=== PATIENT | female | born 1950 | race Caucasian/White ===

== ENCOUNTER → 2016-09-12 | Outpatient (CLI) | payer OTHER ==
[~2016-09-12] MED LIST: ACET-1256 PO; ALL300 PO; ASPI-232 PO; BROM0.07 OPL; CHOL1000 PO; CLC150 PO; DIPH-384 PO; DTRSR/2 PO; FRS/40 PO; MULT-506 PO; NEOM1OIN15 OPB; NICO1DIS9 EXT; NICO21DI35 TD; NTRSLP4 SL; PLV75 PO; POTA1CAP2 PO; POTA1TAB97 PO; PRED1SUS3 OPL; PRLSR20 PO; PSEU30TA20 PO; QVRINH80 INH; SILV1CRE73 TOP; SPR25 PO; VERA1TAB60 PO; VNTHFA/IN INH; ZTA10 PO; [UNRECOGNIZED DRUG - CODE] PO
[2016-09-12 12:42] LABS: BLOOD UREA NITROGEN 11 mg/dl (7-18); CARBON DIOXIDE 35 mmol/L (21-32); CHLORIDE 100 mmol/L (98-107); CREATININE 0.82 mg/dl (0.60-1.20); GLUCOSE 103 mg/dl (70-99); POTASSIUM 2.9 mmol/L (3.5-5.1); SODIUM 143 mmol/L (136-145)
[2016-09-12 12:47] LABS: CHOLESTEROL 228 mg/dl (0-200); CHOLESTEROL/HDL RATIO 4.2; ESTIMATED AVERAGE GLUCOSE 111 mg/dl; HA1C FLAG Normal (Normal); HDL CHOLESTEROL 54 mg/dl; LDL CHOLESTEROL CALCULATED 102 mg/dl; TRIGLYCERIDES 359 mg/dl (0-150); VERY LOW DENSITY LIPOPROT CALC 72 mg/dl
== END | disposition home or self-care (01) ==
LOC: C.LABPVFM 10:09
PROVIDERS: ATTEND Nurse Practitioner
DX: I10 Essential (primary) hypertension (principal); E78.1 Pure hyperglyceridemia; E11.9 Type 2 diabetes mellitus without complications

== ENCOUNTER → 2017-03-06 | Outpatient (CLI) | payer OTHER ==
[2017-03-06 12:30] LABS: ALT/SGPT 22 U/L (12-78); AST/SGOT 13 U/L (15-37); BLOOD UREA NITROGEN 12 mg/dl (7-18); BUN/CREATININE RATIO 16.9 (10-20); CALCIUM 9.8 mg/dl (8.5-10.1); CARBON DIOXIDE 33 mmol/L (21-32); CHLORIDE 104 mmol/L (98-107); CREATININE 0.74 mg/dl (0.60-1.20); GLUCOSE 97 mg/dl (70-99); POTASSIUM 2.9 mmol/L (3.5-5.1); SODIUM 141 mmol/L (136-145)
[2017-03-06 12:32] LABS: ALB/GLOB RATIO 1.1 (0.9-2); ALKALINE PHOSPHATASE 86 U/L (45-117)
[2017-03-06 13:02] LABS: ESTIMATED AVERAGE GLUCOSE 108 mg/dl; HA1C FLAG Normal (Normal)
== END | disposition home or self-care (01) ==
LOC: C.LABPVFM 09:16
PROVIDERS: ATTEND Nurse Practitioner
DX: I10 Essential (primary) hypertension (principal); E11.9 Type 2 diabetes mellitus without complications; E78.5 Hyperlipidemia, unspecified; N28.9 Disorder of kidney and ureter, unspecified; E78.1 Pure hyperglyceridemia; E87.6 Hypokalemia

== ENCOUNTER 2017-05-01 16:18 | Inpatient (IN) | payer OTHER ==
[~2017-05-01] VITALS: Ht 162.6 cm; Wt 108.7 kg
[~2017-05-01 16:18] MED LIST changes: -CLC150 PO; -DIPH-384 PO; -DTRSR/2 PO; -NICO21DI35 TD; -NTRSLP4 SL; -PLV75 PO; -POTA1CAP2 PO; -SPR25 PO; -ZTA10 PO
--- NOTE | 2017-05-01 16:47 | EMERGENCY ROOM VISIT NOTE ---
History Report prepared by Kelsi: Rj Donnelly Under the Supervision of: Dr. Deep Vale D.O. First contact with patient: 16:29 Chief Complaint: STROKE SYMPTOMS Stated Complaint: NUMBNESS,SLURRED SPEECH Nursing Triage Summary: Pt verbalizes on Thursday she had laser surgery on her left eye. Right arm/right leg went numb on thursday after procedure, thought it was a pinched nerve from chronic neck pain, did not see doctor at that time. Since then symptoms have worsened, speech is now slurred and right sided numbness remains and now feels weak on right side. History of Present Illness The patient is a 66 year old female with a history of COPD who presents to the Emergency Room with complaints of persistent stroke symptoms that started 3 days ago. She says that she had laser surgery on her left eye 3 days ago, and after the procedure, her right arm and right leg went numb. The patient states that she thought it was a pinched nerve, but since then, she had weakness in her right arm and right leg. She says that nothing is numb currently, but the weakness has persisted. She adds that she has tongue swelling. She notes that she was seen at Dr. Soto's office prior to arrival, and was sent here due to her symptoms. The patient adds that she was completely fine 3 mornings ago before the procedure. She notes that she had been taking Spirolactone for a couple years, but was taken off of it 2 and a half years ago, but was put back on the Spirolactone a week and a half ago by Dr. Cason. The patient denies any headaches, nausea, vomiting, or worsened shortness of breath. She notes no history of strokes. She smokes a half a pack of cigarettes per day. Source of History: patient Onset: 3 days ago Position: other (global - stroke symptoms) Timing: other (persistent) Associated Symptoms: + weakness (right-sided), + numbness (right-sided but no numbness anymore), No headache, No SOB (any worsened), No nausea, No vomiting Note: No other associated symptoms noted. Review of Systems See HPI for pertinent positives & negatives. A total of 10 systems reviewed and were otherwise negative. Past Medical & Surgical Medical Problems: (1) COPD (chronic obstructive pulmonary disease) (2) HTN (hypertension) (3) Neck pain (4) Stroke Family History Cancer Diabetes mellitus Social History Smoking Status: Current Every Day Smoker Drug Use: none Marital Status: Occupation Status: employed Current/Historical Medications Scheduled Acetaminophen (Tylenol), 2 TAB PO QID Albuterol Hfa (Ventolin Hfa), 2 PUFFS INH DAILY Allopurinol (Allopurinol), 300 MG PO QAM Aspirin (Aspir-81), 81 MG PO HS Diphenhydramine Hcl (Allergy), 1 CAP PO BID Furosemide (Lasix), 40 MG PO BID Multivitamin (Multivitamin), 1 TAB PO QAM Nicotine (Nicoderm Cq 21MG Patch), 1 PATCH TD DAILY Potassium Chloride (Potassium Chloride Er), 2 TAB PO BID Pseudoephedrine (Sudafed), 30 MG PO QID Spironolactone (Spironolactone), 1 TAB PO DAILY Tolterodine Tartrate (Detrol LA), Unknown Dose PO DAILY Verapamil Hcl (Calan Sr Ext Rel), 240 MG PO BID Scheduled PRN Silver Sulfadiazine (Silvadene), 1 APPLN TOP DAILY PRN for PRN Allergies Coded Allergies: Grass (Verified Allergy, Intermediate, nasal conjestion,watery eyes, ) Ibuprofen (Verified Allergy, Intermediate, hives, post nasal drip, TAKES ASA AT HOME, 05/01/17) Indomethacin (Verified Allergy, Intermediate, hives, TAKES ASA AT HOME, ) NSAIDs (Verified Allergy, Intermediate, hives, TAKES ASA AT HOME, 05/01/17) Naproxen (Verified Allergy, Intermediate, hives, 05/01/17) Ragweed (Verified Allergy, Intermediate, nasal conjestion, watery eyes, ) Ampicillin (Unverified Allergy, Mild, N/V AND HIVES, 05/01/17) Salicylates (Unverified Allergy, Mild, DIARRHEA, RASH, 05/01/17) LOW-DOSE ASPIRIN OKAY Statins (Verified Allergy, Unknown, MUSCLE ACHES, 05/01/17) Uncoded Allergies: acryllic (Allergy, Intermediate, nasal conjestion, wheezing, 06/07/14) Physical Exam Vital Signs Date Time Temp Pulse Resp B/P (MAP) Pulse Ox O2 Delivery O2 Flow Rate FiO2 05/01/17 19:27 71 25 152/78 94 Nasal Cannula 2.0 05/01/17 19:21 75 192/113 05/01/17 19:04 79 23 200/112 90 Room Air 05/01/17 17:02 Room Air 05/01/17 17:01 Room Air 05/01/17 16:45 93 05/01/17 16:20 36.8 96 22 199/89 93 Room Air Physical Exam GENERAL: Patient is awake, alert, non-anxious appearing and comfortable. EYES: Left pupil was dilated and nonreactive to light. Right pupil was mid- sized and reactive to light. Extraocular movements were intact. EARS, NOSE, MOUTH AND THROAT: The nose is without any evidence of any deformity. Mucous membranes are moist tongue is midline NECK: The neck is nontender and supple. RESPIRATORY: Normal respiratory effort is noted there is no evidence of wheezing rhonchi or rales CARDIOVASCULAR: Regular rate and rhythm noted there no murmurs rubs or gallops normal S1 normal S2 GASTROINTESTINAL: The abdomen is soft. Bowel sounds are present in all quadrants. Abdomen is nontender MUSCULOSKELETAL/EXTREMITIES: There is no evidence of gross deformity full range of motion is noted in the hips and shoulders SKIN: Pedal edema bilaterally. NEUROLOGIC: Patient is awake alert and oriented x3. Speech was slurred but understandable. Toll Line Repairer strength was symmetric. Medical Decision & Procedures ER Provider Diagnostic Interpretation: Radiology results as stated below per my review and radiologist interpretation: HEAD WITHOUT CONTRAST (CT) CLINICAL HISTORY: 66 years-old Female presenting with EVALUATE ALTERED MENTAL STATUS/WEAKNESS, slurred speech. TECHNIQUE: Multidetector CT imaging of the head was performed without the use of intravenous contrast. IV contrast: None. A dose lowering technique was used consistent with the principles of ALARA (as low as reasonably achievable). COMPARISON: None. CT DOSE (mGy.cm): The estimated cumulative dose is 1535.66 mGy.cm. FINDINGS: Tablet Machine Operator topogram: Unremarkable. Posterior fossa cyst, likely arachnoid cyst. Ventricles and sulci normal in size. Old lacunar infarct noted in the right basal ganglia. No mass effect or midline shift. No hemorrhage or acute territorial infarct. No extra-axial fluid collection. Paranasal sinuses and mastoid air cells clear. Calvarium intact. IMPRESSION: 1. No acute intracranial pathology. 2. Old lacunar infarct in the right basal ganglia. Electronically signed by: Franklin Medina M.D. 05/01/2017 5:27 PM Dictated Date/Time: 05/01/2017 5:24 PM CHEST ONE VIEW PORTABLE CLINICAL HISTORY: EVALUATE ALTERED MENTAL STATUS/WEAKNESS dyspnea COMPARISON STUDY: No previous studies for comparison. FINDINGS: Mild cardiomegaly. Post 5 Infiltrate right base. Pulmonary vascular congestion. Diaphragms are smooth. IMPRESSION: Pulmonary vascular congestion. Mild superimposed infiltrate right base. The above report was generated using voice recognition software. It may contain grammatical, syntax or spelling errors. Electronically signed by: Maxim Henley M.D. 05/01/2017 5:18 PM Dictated Date/Time: 05/01/2017 5:18 PM Laboratory Results 05/01/17 16:50 Red Blood Count 4.76, Mean Corpuscular Volume 91.6, Mean Corpuscular Hemoglobin 30.0, Mean Corpuscular Hemoglobin Concent 32.8, Mean Platelet Volume 10.8, Neutrophils (%) (Auto) 64.2, Lymphocytes (%) (Auto) 25.2, Monocytes (%) (Auto) 8.4, Eosinophils (%) (Auto) 1.4, Basophils (%) (Auto) 0.5, Neutrophils # (Auto) 5.07, Lymphocytes # (Auto) 1.99, Monocytes # (Auto) 0.66, Eosinophils # (Auto) 0.11, Basophils # (Auto) 0.04 05/01/17 16:50 Test 05/01/17 16:50 05/01/17 18:25 White Blood Count 7.89 K/uL (4.8-10.8) Red Blood Count 4.76 M/uL (4.2-5.4) Hemoglobin 14.3 g/dL (12.0-16.0) Hematocrit 43.6 % (37-47) Mean Corpuscular Volume 91.6 fL (80-100) Mean Corpuscular Hemoglobin 30.0 pg (25-34) Mean Corpuscular Hemoglobin Concent 32.8 g/dl (32-36) Platelet Count 221 K/uL (130-400) Mean Platelet Volume 10.8 fL (7.4-10.4) Neutrophils (%) (Auto) 64.2 % Lymphocytes (%) (Auto) 25.2 % Monocytes (%) (Auto) 8.4 % Eosinophils (%) (Auto) 1.4 % Basophils (%) (Auto) 0.5 % Neutrophils # (Auto) 5.07 K/uL (1.4-6.5) Lymphocytes # (Auto) 1.99 K/uL (1.2-3.4) Monocytes # (Auto) 0.66 K/uL (0.11-0.59) Eosinophils # (Auto) 0.11 K/uL (0-0.5) Basophils # (Auto) 0.04 K/uL (0-0.2) RDW Standard Deviation 47.5 fL (36.4-46.3) RDW Coefficient of Variation 14.2 % (11.5-14.5) Immature Granulocyte % (Auto) 0.3 % Immature Granulocyte # (Auto) 0.02 K/uL (0.00-0.02) Prothrombin Time 10.1 SECONDS (9.0-12.0) Prothromb Time International Ratio 0.9 (0.9-1.1) Activated Partial Thromboplast Time 31.4 SECONDS (21.0-31.0) Partial Thromboplastin Ratio 1.2 Anion Gap 6.0 mmol/L (3-11) Est Creatinine Clear Calc Drug Dose 88.2 ml/min Estimated GFR () 93.4 Estimated GFR (Non- 80.6 BUN/Creatinine Ratio 16.7 (10-20) Calcium Level 9.0 mg/dl (8.5-10.1) Magnesium Level 2.2 mg/dl (1.8-2.4) Total Bilirubin 0.5 mg/dl (0.2-1) Direct Bilirubin 0.1 mg/dl (0-0.2) Aspartate Amino Transf (AST/SGOT) 14 U/L (15-37) Alanine Aminotransferase (ALT/SGPT) 17 U/L (12-78) Alkaline Phosphatase 84 U/L (45-117) Troponin I < 0.015 ng/ml (0-0.045) Total Protein 7.1 gm/dl (6.4-8.2) Albumin 3.7 gm/dl (3.4-5.0) Thyroid Stimulating Hormone (TSH) 3.500 uIu/ml (0.300-4.500) Urine Color YELLOW Urine Appearance CLEAR (CLEAR) Urine pH 7.5 (4.5-7.5) Urine Specific [place] 1.013 (1.000-1.030) Urine Protein NEG (NEG) Urine Glucose (UA) NEG (NEG) Urine Ketones NEG (NEG) Urine Occult Blood NEG (NEG) Urine Nitrite NEG (NEG) Urine Bilirubin NEG (NEG) Urine Urobilinogen NEG (NEG) Urine Leukocyte Esterase NEG (NEG) Laboratory results per my review. Medications Administered Medications (Trade) Dose Ordered Sig/Klaudia Route Start Time Stop Time Status Last Admin Dose Admin Levofloxacin (Levaquin / D5W) 750 mg NOW STAT IV 05/01/17 19:08 05/01/17 19:09 DC 05/01/17 19:15 750 MG Metoprolol Tartrate (Lopressor Iv) 15 mg NOW STAT IV 05/01/17 19:09 05/01/17 19:10 DC 05/01/17 19:21 15 MG ECG Indication: weakness Rate (beats per minute): 88 Rhythm: normal sinus Findings: no ectopy, other (no acute ST segment abnormalities) Comparison ECG Date: no prior available ED Course 1631: The patient was evaluated in room A10. A complete history and physical examination were performed. 1905: I reevaluated the patient and she is resting comfortably. The patient verbally expressed understanding and agreement with the treatment plan. The patient will be evaluated for further treatment. 1907: Ordered Levaquin / D5W 750 mg IV. 1908: Ordered Lopressor IV 15 mg IV. 0: I discussed the patient with Dr. Cavanaugh - [facility] service delivery supervisor. He will evaluate the patient for further treatment. Medical Decision Differential diagnosis: Etiologies such as metabolic, infection, hypo/hyperglycemia, electrolyte abnormalities, cardiac sources, intracerebral event, toxicologic, neurologic, as well as others were entertained. Nursing notes reviewed. The patient is a 66-year-old female who presented to the emergency department for ongoing right-sided weakness. The patient noticed symptoms a few days ago. She also has a cough. Her chest x-ray appears to be consistent with pneumonia. The patient does not have an acute CVA on CT the head however she does have a previous lacunar infarct. It does not appear to be in a distribution that would explain today's symptoms however given the presence of a previous CVA I do feel the patient could be at risk and may require further testing. I discussed the patient's laboratory and radiographic studies with her. She was treated with medication for blood pressure and also given an IV antibiotic in the emergency department. I discussed his case with the on-call [facility] hospitalist group. They've agreed to evaluate the patient in the emergency department for further management and disposition. Head Trauma GCS Score: 15 Medication Reconcilliation Current Medication List: was personally reviewed by me Blood Pressure Screening Patient's blood pressure: Elevated blood pressure Referred to hospitalist. Consults Time Called: 1919 [facility]ing Phys[facility] Returned Call: 1929 (in person) I discussed the patient with Dr. Cavanaugh - [facility] service delivery supervisor. He will evaluate the patient for further treatment. Impression Primary Impression: Right sided weakness Additional Impressions: PNA (pneumonia) HTN (hypertension) Scribe Attestation The scribe's documentation has been prepared under my direction and personally reviewed by me in its entirety. I confirm that the note above accurately reflects all work, treatment, procedures, and medical decision making performed by me. Departure Information Dispostion Being Evaluated By Hospitalist Referrals Franklin Alarcon M.D. (PCP) Patient Instructions My [facility] Health Problem Qualifiers Additional Impressions: PNA (pneumonia) Pneumonia type: due to unspecified organism Laterality: unspecified laterality Lung location: unspecified part of lung Qualified Codes: J18.9 - Pneumonia, unspecified organism HTN (hypertension) Hypertension type: unspecified Qualified Codes: I10 - Essential (primary) hypertension
[2017-05-01 17:12] LABS: BASO % 0.5 %; BASO ABS # 0.04 K/uL (0-0.2); COMPLETE YES; EOS % 1.4 %; HEMATOCRIT 43.6 % (37-47); IG% 0.3 %; LYMPH % 25.2 %; LYMPH ABS # 1.99 K/uL (1.2-3.4); MEAN CELL VOLUME 91.6 fL (80-100); MEAN CORPUSCULAR HGB CONC 32.8 g/dl (32-36); MEAN PLATELET VOLUME 10.8 fL (7.4-10.4); MONO % 8.4 %; NEUT % 64.2 %; PLATELET COUNT 221 K/uL (130-400); RED BLOOD COUNT 4.76 M/uL (4.2-5.4); WHITE BLOOD COUNT 7.89 K/uL (4.8-10.8)
[2017-05-01 17:17] LABS: INR 0.9 (0.9-1.1); PARTIAL THROMBOPLASTIN RATIO 1.2; PROTHROMBIN TIME (PATIENT) 10.1 SECONDS (9.0-12.0)
--- NOTE | 2017-05-01 17:20 | DIAGNOSTIC IMAGING REPORT ---
CHEST ONE VIEW PORTABLE CLINICAL HISTORY: EVALUATE ALTERED MENTAL STATUS/WEAKNESS dyspnea COMPARISON STUDY: No previous studies for comparison. FINDINGS: Mild cardiomegaly. Post 5 Infiltrate right base. Pulmonary vascular congestion. Diaphragms are smooth. IMPRESSION: Pulmonary vascular congestion. Mild superimposed infiltrate right base. The above report was generated using voice recognition software. It may contain grammatical, syntax or spelling errors. Electronically signed by: Maxim Henley M.D. 05/01/2017 5:18 PM Dictated Date/Time: 05/01/2017 5:18 PM
--- NOTE | 2017-05-01 17:28 | DIAGNOSTIC IMAGING REPORT ---
HEAD WITHOUT CONTRAST (CT) CLINICAL HISTORY: 66 years-old Female presenting with EVALUATE ALTERED MENTAL STATUS/WEAKNESS, slurred speech. TECHNIQUE: Multidetector CT imaging of the head was performed without the use of intravenous contrast. IV contrast: None. A dose lowering technique was used consistent with the principles of ALARA (as low as reasonably achievable). COMPARISON: None. CT DOSE (mGy.cm): The estimated cumulative dose is 1535.66 mGy.cm. FINDINGS: Eyeglass Lens Generator topogram: Unremarkable. Posterior fossa cyst, likely arachnoid cyst. Ventricles and sulci normal in size. Old lacunar infarct noted in the right basal ganglia. No mass effect or midline shift. No hemorrhage or acute territorial infarct. No extra-axial fluid collection. Paranasal sinuses and mastoid air cells clear. Calvarium intact. IMPRESSION: 1. No acute intracranial pathology. 2. Old lacunar infarct in the right basal ganglia. Electronically signed by: Franklin Medina M.D. 05/01/2017 5:27 PM Dictated Date/Time: 05/01/2017 5:24 PM
[2017-05-01] MEDS ORDERED: POTA1CAP2 PO (17:31)
[2017-05-01] MEDS ORDERED: SPR25 PO (17:31)
[2017-05-01 17:32] LABS: ALT/SGPT 17 U/L (12-78); AST/SGOT 14 U/L (15-37); BLOOD UREA NITROGEN 13 mg/dl (7-18); BUN/CREATININE RATIO 16.7 (10-20); CARBON DIOXIDE 29 mmol/L (21-32); CHLORIDE 106 mmol/L (98-107); CREATININE 0.76 mg/dl (0.60-1.20); GLUCOSE 94 mg/dl (70-99); MAGNESIUM 2.2 mg/dl (1.8-2.4); POTASSIUM 3.2 mmol/L (3.5-5.1); SODIUM 141 mmol/L (136-145)
[2017-05-01] MEDS ORDERED: DIPH-384 PO (17:44)
[2017-05-01] MEDS ORDERED: NICO21DI35 TD (17:44)
[2017-05-01] MEDS ORDERED: DTRSR/2 PO (17:44)
[2017-05-01 17:53] LABS: ALKALINE PHOSPHATASE 84 U/L (45-117)
[2017-05-01 18:32] LABS: URINE APPEARANCE CLEAR (CLEAR); URINE BILIRUBIN NEG (NEG); URINE COLOR YELLOW; URINE NITRITE NEG (NEG); URINE PH 7.5 (4.5-7.5); URINE SPECIFIC GRAVITY 1.013 (1.000-1.030); UROBILINOGEN NEG (NEG)
[2017-05-01 18:37] LABS: MANUAL MICROSCOPIC REQUIRED? NO; REVIEW REQ? NO
[2017-05-01] MEDS ORDERED: LEVAQUIN 750MG / 150ML D5W IV STA (19:08)
[2017-05-01] MEDS: METOPROLOL TARTRATE 1 MG/ML VIAL IV STA ×2 (19:16→19:21)
[2017-05-01] MEDS ORDERED: PHARMACIST DISCHARGE MED REC CONSULT PRN (20:15)
[2017-05-01] MEDS ORDERED: ZOLPIDEM TARTRATE 5 MG TAB PO PRN (20:30)
[2017-05-01] MEDS ORDERED: ALUMINUM/MAGNESIUM/SIMETH (MAALOX MAX) 30 ML UDC PO PRN (20:30)
[2017-05-01] MEDS ORDERED: NITROGLYCERIN 0.4 MG SL PER TAB CHARGE SL PRN (20:30)
[2017-05-01] MEDS ORDERED: ACETAMINOPHEN 325 MG TAB PO PRN (20:30)
[2017-05-01] MEDS ORDERED: CLOPIDOGREL BISULFATE 75 MG TAB PO ONE (20:30)
[2017-05-01] MEDS ORDERED: POLYETHYLENE (MIRALAX) 17 GM PACK PO PRN (20:30)
[2017-05-01] MEDS ORDERED: MAGNESIUM HYDROXIDE SUSP 30 ML UDC PO PRN (20:30)
[2017-05-01] MEDS ORDERED: ONDANSETRON INJ 2 MG/ML 2 ML VIAL IV PRN (20:30)
[2017-05-01] MEDS ORDERED: ACETAMINOPHEN 500 MG TAB PO SCH (20:45)
--- NOTE | 2017-05-01 20:54 | History and Physical ---
History & Physical Date & Time of Service: May 01, 2017 at 19:21 Chief Complaint: Numbness,Slurred Speech Primary Care Physician: Franklin Alarcon M.D. History of Present Illness Source: patient, family, clinic records, hospital records 66F with a PMHx of COPD (half pk per day x 50 years on Albuterol), HTN, cervical radiculopathy and poor ambulation at baseline p/w right arm tingling and weakness since Thursday. She had laser eye surgery with Dr. Kim on Thursday and thought that her right arm weakness and tingling was part of her chronic cervical radiculopathy. Pt states that her right leg is also weaker than her left leg but that weakness predates the eye surgery with Dr. Kim. She was sent to the hospital today from Dr. Soto's office who wants to rule out a stroke. According to pt and her she hasn't had any changes in her gait. Her also hasn't noticed any changes with his which include changes in her gait or facial asymmetry. On ROS pt states that she has been having slurred speech but she thinks that is from her dry mouth. She denies any symptoms of dysphagia. On the ED, chest X-ray revealed a right lower lobe infiltrate and pt was started on Levofloxacin. Pt denies any coughing or fevers however while in the exam room she did coughed one time. ROS: Pt does not feel sick, she in fact feels at her baseline except for her right arm weakness, no vomiting, no choking, no dysphagia, no cough, no fevers, no chest pain, no visual changes, denies changes in her gait. SHx: lives with , retired, uses a motorized scooter to ambulate at baseline. Past Medical/Surgical History Medical Problems: (1) COPD (chronic obstructive pulmonary disease) Status: Chronic (2) HTN (hypertension) Status: Chronic (3) Neck pain Status: Chronic Family History Cancer Diabetes mellitus Social History Smoking Status: Current Every Day Smoker Smokeless Tobacco Use: No Alcohol Use: none Drug Use: none Marital Status: Housing status: lives with family Occupational Status: employed Immunizations History of Influenza Vaccine: Unknown History of Tetanus Vaccine?: Unknown History of Pneumococcal: Unknown History of Hepatitis B Vaccine: Unknown Multi-Drug Resistant Organisms History of MDRO: No Allergies Coded Allergies: Grass (Verified Allergy, Intermediate, nasal conjestion,watery eyes, ) Ibuprofen (Verified Allergy, Intermediate, hives, post nasal drip, TAKES ASA AT HOME, 05/01/17) Indomethacin (Verified Allergy, Intermediate, hives, TAKES ASA AT HOME, ) NSAIDs (Verified Allergy, Intermediate, hives, TAKES ASA AT HOME, 05/01/17) Naproxen (Verified Allergy, Intermediate, hives, 05/01/17) Ragweed (Verified Allergy, Intermediate, nasal conjestion, watery eyes, ) Ampicillin (Unverified Allergy, Mild, N/V AND HIVES, 05/01/17) Salicylates (Unverified Allergy, Mild, DIARRHEA, RASH, 05/01/17) LOW-DOSE ASPIRIN OKAY Statins (Verified Allergy, Unknown, MUSCLE ACHES, 05/01/17) Uncoded Allergies: acryllic (Allergy, Intermediate, nasal conjestion, wheezing, 06/07/14) Home Medications Scheduled Acetaminophen (Tylenol), 2 TAB PO QID Albuterol Hfa (Ventolin Hfa), 2 PUFFS INH DAILY Allopurinol (Allopurinol), 300 MG PO QAM Aspirin (Aspir-81), 81 MG PO HS Diphenhydramine Hcl (Allergy), 1 CAP PO BID Furosemide (Lasix), 40 MG PO BID Multivitamin (Multivitamin), 1 TAB PO QAM Nicotine (Nicoderm Cq 21MG Patch), 1 PATCH TD DAILY Potassium Chloride (Potassium Chloride Er), 2 TAB PO BID Pseudoephedrine (Sudafed), 30 MG PO QID Spironolactone (Spironolactone), 1 TAB PO DAILY Tolterodine Tartrate (Detrol LA), Unknown Dose PO DAILY Verapamil Hcl (Calan Sr Ext Rel), 240 MG PO BID Scheduled PRN Silver Sulfadiazine (Silvadene), 1 APPLN TOP DAILY PRN for PRN Review of Systems Constitutional: No fever, No chills ENT: No sore throat Respiratory: + cough, No shortness of breath Cardiovascular: No chest pain Abdomen: No nausea, No vomiting, No diarrhea Musculoskeletal: + joint pain, + muscle pain, No swelling, No calf pain Genitourinary - Female: No dysuria Psychiatric: No depression symptoms Endocrine: No fatigue Integumentary: No rash Physical Exam Vital Signs Date Time Temp Pulse Resp B/P (MAP) Pulse Ox O2 Delivery O2 Flow Rate FiO2 05/01/17 19:16 80 200/112 05/01/17 19:04 79 23 200/112 Room Air 05/01/17 17:02 Room Air 05/01/17 17:01 Room Air 05/01/17 16:45 93 05/01/17 16:20 36.8 96 22 199/89 93 Room Air General Appearance: WD/WN, + obese Head: normocephalic, atraumatic Eyes: + pertinent finding (right pupil was constricted compared to the left pupil) Neck: supple, no JVD Respiratory/Chest: chest non-tender, lungs clear, normal breath sounds, no respiratory distress, no accessory muscle use Cardiovascular: regular rate, rhythm, no murmur Abdomen/GI: normal bowel sounds, non tender, soft, + pertinent finding (obese) Back: normal inspection, no CVA tenderness, no muscle spasm Extremities/Musculoskelatal: no calf tenderness, non-tender, + pertinent finding (Pt was unable to raise the right leg past 30 degrees and unable to raise the left leg past 45 degrees. She had significantly decreased hand strength on the right side (handshake, finger squeeze) vs the left. She was also unable to raise her right arm to the same height as her left arm. ) Neurologic/Psych: harness repairer II-XII nml as tested, no motor/sensory deficits, alert, normal mood/affect, oriented x 3, + pertinent finding (no facial droop, facial muscles were symmetric, sensation was intact and symmetrical to light touch over the lower extremities, upper extremities and face bilaterally. Shoulde shrug was intact, frown was symmetrical, smile was symmetrical, tongue protrusion was symmetrical, uvula was symmetrical. Patient did not seem to have slurred speech for me. ) Skin: no rash Diagnostics Laboratory Results Results Past 24 Hours Test 05/01/17 16:50 05/01/17 18:25 Range/Units White Blood Count 7.89 4.8-10.8 K/uL Red Blood Count 4.76 4.2-5.4 M/uL Hemoglobin 14.3 12.0-16.0 g/dL Hematocrit 43.6 37-47 % Mean Corpuscular Volume 91.6 80-100 fL Mean Corpuscular Hemoglobin 30.0 25-34 pg Mean Corpuscular Hemoglobin Concent 32.8 32-36 g/dl Platelet Count 221 130-400 K/uL Mean Platelet Volume 10.8 7.4-10.4 fL Neutrophils (%) (Auto) 64.2 % Lymphocytes (%) (Auto) 25.2 % Monocytes (%) (Auto) 8.4 % Eosinophils (%) (Auto) 1.4 % Basophils (%) (Auto) 0.5 % Neutrophils # (Auto) 5.07 1.4-6.5 K/uL Lymphocytes # (Auto) 1.99 1.2-3.4 K/uL Monocytes # (Auto) 0.66 0.11-0.59 K/uL Eosinophils # (Auto) 0.11 0-0.5 K/uL Basophils # (Auto) 0.04 0-0.2 K/uL RDW Standard Deviation 47.5 36.4-46.3 fL RDW Coefficient of Variation 14.2 11.5-14.5 % Immature Granulocyte % (Auto) 0.3 % Immature Granulocyte # (Auto) 0.02 0.00-0.02 K/uL Prothrombin Time 10.1 9.0-12.0 SECONDS Prothromb Time International Ratio 0.9 0.9-1.1 Activated Partial Thromboplast Time 31.4 21.0-31.0 SECONDS Partial Thromboplastin Ratio 1.2 Sodium Level 141 136-145 mmol/L Potassium Level 3.2 3.5-5.1 mmol/L Chloride Level 106 98-107 mmol/L Carbon Dioxide Level 29 21-32 mmol/L Anion Gap 6.0 3-11 mmol/L Blood Urea Nitrogen 13 7-18 mg/dl Creatinine 0.76 0.60-1.20 mg/dl Est Creatinine Clear Calc Drug Dose 88.2 ml/min Estimated GFR () 93.4 Estimated GFR (Non- 80.6 BUN/Creatinine Ratio 16.7 10-20 Random Glucose 94 70-99 mg/dl Calcium Level 9.0 8.5-10.1 mg/dl Magnesium Level 2.2 1.8-2.4 mg/dl Total Bilirubin 0.5 0.2-1 mg/dl Direct Bilirubin 0.1 0-0.2 mg/dl Aspartate Amino Transf (AST/SGOT) 14 15-37 U/L Alanine Aminotransferase (ALT/SGPT) 17 12-78 U/L Alkaline Phosphatase 84 45-117 U/L Troponin I < 0.015 0-0.045 ng/ml Total Protein 7.1 6.4-8.2 gm/dl Albumin 3.7 3.4-5.0 gm/dl Thyroid Stimulating Hormone (TSH) 3.500 0.300-4.500 uIu/ml Urine Color YELLOW Urine Appearance CLEAR CLEAR Urine pH 7.5 4.5-7.5 Urine Specific [place] 1.013 1.000-1.030 Urine Protein NEG NEG Urine Glucose (UA) NEG NEG Urine Ketones NEG NEG Urine Occult Blood NEG NEG Urine Nitrite NEG NEG Urine Bilirubin NEG NEG Urine Urobilinogen NEG NEG Urine Leukocyte Esterase NEG NEG Diagnostic Radiology CHEST ONE VIEW PORTABLE CLINICAL HISTORY: EVALUATE ALTERED MENTAL STATUS/WEAKNESS dyspnea COMPARISON STUDY: No previous studies for comparison. FINDINGS: Mild cardiomegaly. Post 5 Infiltrate right base. Pulmonary vascular congestion. Diaphragms are smooth. IMPRESSION: Pulmonary vascular congestion. Mild superimposed infiltrate right base. [~ rep ct add3]] HEAD WITHOUT CONTRAST (CT) CLINICAL HISTORY: 66 years-old Female presenting with EVALUATE ALTERED MENTAL STATUS/WEAKNESS, slurred speech. TECHNIQUE: Multidetector CT imaging of the head was performed without the use of intravenous contrast. IV contrast: None. A dose lowering technique was used consistent with the principles of ALARA (as low as reasonably achievable). COMPARISON: None. CT DOSE (mGy.cm): The estimated cumulative dose is 1535.66 mGy.cm. FINDINGS: Emergency Physician topogram: Unremarkable. Posterior fossa cyst, likely arachnoid cyst. Ventricles and sulci normal in size. Old lacunar infarct noted in the right basal ganglia. No mass effect or midline shift. No hemorrhage or acute territorial infarct. No extra-axial fluid collection. Paranasal sinuses and mastoid air cells clear. Calvarium intact. IMPRESSION: 1. No acute intracranial pathology. 2. Old lacunar infarct in the right basal ganglia. Impression Assessment and Plan 66F with a PMHx of COPD (half pk per day x 50 years on Albuterol), HTN, cervical radiculopathy and poor ambulation at baseline p/w right arm tingling and weakness since Thursday. There was an old right sided basal ganglia infarct on CT Scan. On exam there are significant neurological deficits in the RUE vs the left and assymetrical pupils. She was not a TPA candidate due to duration of symptoms. She will be admitted to tele and worked up with a MRA head and neck and MRI brain. She will also get an echocardiogram. Per quality measures neurology was also consulted. Stroke: - Right sided arm weakness since Thursday + assymetrical pupils. - CT : Old R basal ganglia stroke. - MRA Head and Neck (combo) pending- PT refused - MRI brain pending. - PT refused - In leiu of MRA and MRI, we are getting a CTA head and neck. - Echo pending. - Neurology consulted (as per protocol) - Speech therapy consulted. - Anticoagulation - ASA 81MG (pt takes this at home despite the documented NSAID allergy) - Statin - Pt gets hives and rash so we did not order one. CV - EKG showed normal sinus rhythm. Will put pt on tele. Echo pending as above. HTN: Continue home meds Verapamil 240mg XR, Lasix 40mg dialy and Spironolactone 25mg daily. - Continue to monitor, pt was in the 180s systolic in the ED and given 5mg Metoprolol. Pneumonia Right Base - ?Aspiration vs Infectious X-ray showed pulmonary vascular congestion. Mild superimposed infiltrate right base. Pt is reporting a dry mouth, if there's a dysphagia, this may be a contributing factor. Pt failed dysphagia screen in the ED, then got a moisturized swab of the mouth and passed her dysphagia screen on the floor. WBC within normal limits. Abx: changed Levoquin to Ceftriaxone 1g daily + Clindamycin 600mg IV Q6 WBC normal. COPD - Albuterol as per home dosing. - Pt smokes half a pack of cigarettes per day. - Smoking cessation consult. - Nicotine 21mg TD patch. Renal/ - Pt is on Toleterodine at home for urinary incontinence, will continue as inpatient at 2mg daily PO. Creatinine is WNL. Will monitor urine output. Lasix 40mg PO per home meds, 20mg KCL daily PO GI/Diet - Pt denies any dysphagia or inability to take pills, ergo will start her on a heart healthy diet, this may need to be changed pending speech evaluation. Endo - Per patient she is a prediabetic, not on any meds, measures BS at home and gets 90-115 range. HBA1C pending. Heme - Hgb , INR, Platelets WNL. ID - Afebrile, WBC count normal. Treating pneumonia as above. MSK - Uses a motorized scooter to walk around at baseline. PT and OT on board. Social - No concerns. DVT Proph: Hep SQ TID Dispo - Tele, retired, lives with . Full Code Attending Addendum: I have physically seen and examined this patient, have directed the resident's medical activities, and agree with the H&P as noted above with the following exceptions as noted. The patient is awake, alert and oriented 3, well-developed and well-nourished , normocephalic and atraumatic, lying in bed and in no acute distress. HEENT--physiologic anisocoria, mucous membranes and oropharynx very dry. Neck--supple, no JVD or bruits, thyroid normal, trachea midline, no adenopathy. Heart--normal S1 and S2, no extra beats, no murmurs, rubs or gallops. Lungs--clear bilaterally with good air movement, no respiratory distress, no accessory muscle use. Abdomen--normal bowel sounds and soft, nontender and nondistended, no hernias or masses, no organomegaly, obese Extremities--no cyanosis, clubbing or edema. There are good distal pulses b/l. Dermatologic--normal skin turgor, normal color, warm and dry, no abnormal lymph nodes, no rash. Neurologic--cranial nerves II through XII grossly intact, decreased motor RU and RL as described. LLE decreased due to deconditioning Rheumatologic--limited by above. Psychiatric--normal affect. Assessment and Plan: CVA/right sided weakness/previously reported dysphagia secondary to severely dry mouth-- The patient will be admitted to telemetry for serial cardiac enzymes, cardiac rhythm monitoring and a 2-D echocardiogram with Dopplers. Patient unable to tolerate MRI. Order CTA of head and neck. Discontinue aspirin 81 mg by mouth daily, does not tolerate other NSAIDs. Start plavix 75 mg po daily Neuro checks. Consult PT/OT/speech therapy/neurology. Right lower lobe pneumonia-- Start ceftriaxone 1 g IV daily. Start clindamycin 900 mg IV every 8 hours. COPD/tobacco use disorder-- Continue albuterol. Smoking cessation. Nicotine 21 mg patch daily. Level of Care Telemetry Advanced Directives Existing Advance Directive: No Existing Living Will: No Existing Power of Rug Inspector Helper: No Resuscitation Status FULL RESUSCITATION VTE Prophylaxis Risk Level: Moderate Given or contraindicated: SCD's Social Service Consult None Apply Resident Involvement: Resident Care Provided Care Provided: Adult Hospital Medicine
[2017-05-01] MEDS ORDERED: CLOPIDOGREL BISULFATE 75 MG TAB ONE (20:59)
[2017-05-01] MEDS ORDERED: ASPIRIN 81 MG ECTAB PO ONE (20:59)
[2017-05-01 22:30] VITALS: BP 173/88; PULSE 74; TEMP 36.7; O2SAT 94; Ht 162.6 cm; Wt 108.7 kg
[2017-05-01] MEDS: ASPIRIN 81 MG ECTAB PO STA ×2 (22:32→22:39)
[2017-05-01] MEDS: HEPARIN SOD 5000 UNIT/0.5 ML CARP SQ SCH (22:37)
[2017-05-01] MEDS: VERAPAMIL HCL 240 MG TABCR PO SCH (22:39)
[2017-05-01] MEDS: FUROSEMIDE 40 MG TAB PO SCH (22:39)
[2017-05-01] MEDS ORDERED: NURSING VERBAL MED ORDER ONE (22:45)
[2017-05-01] MEDS ORDERED: OPTIRAY 320 IV PRN (23:00)
[2017-05-01] MEDS ORDERED: INFLUENZA ADMINISTRATION CHARGE ONE (23:45)
[2017-05-01] MEDS ORDERED: INFLUENZA VACCINE HIGH DOSE 65+ 0.5 ML SYR IM. ONE (23:45)
[2017-05-01] MEDS: CEFTRIAXONE SOD INJ 1 GM in DEXTROSE 5% ADD-VANTAGE 50ML 50 ML IV SCH (23:53)
[2017-05-01 23:59] VITALS: O2SAT 94
[2017-05-02] VITALS (7 sets, daily range): BP systolic 153–178; BP diastolic 71–89; PULSE 62–81; TEMP 36.4–36.8; O2SAT 91–95
[2017-05-02] MEDS ORDERED: CLINDAMYCIN IV 600 MG in DEXTROSE 5% 50ML 50 ML IV SCH ×2
[2017-05-02] MEDS: POTASSIUM CHLR 10 MEQ / WTR 10 MEQ in PREMIXED WATER 100 ML IV SCH (01:07)
[2017-05-02] MEDS: HEPARIN SOD 5000 UNIT/0.5 ML CARP SQ SCH ×3 (05:42→21:38)
[2017-05-02 06:20] LABS: BASO % 0.4 %; BASO ABS # 0.03 K/uL (0-0.2); COMPLETE YES; EOS % 1.6 %; HEMATOCRIT 44.8 % (37-47); IG% 0.2 %; LYMPH % 25.5 %; LYMPH ABS # 2.09 K/uL (1.2-3.4); MEAN CELL VOLUME 92.9 fL (80-100); MEAN CORPUSCULAR HEMOGLOBIN 30.1 pg (25-34); MEAN CORPUSCULAR HGB CONC 32.4 g/dl (32-36); MEAN PLATELET VOLUME 11.3 fL (7.4-10.4); MONO % 13.2 %; NEUT % 59.1 %; PLATELET COUNT 223 K/uL (130-400); RED BLOOD COUNT 4.82 M/uL (4.2-5.4); WHITE BLOOD COUNT 8.19 K/uL (4.8-10.8)
[2017-05-02 06:29] LABS: PROTHROMBIN TIME (PATIENT) 10.7 SECONDS (9.0-12.0)
[2017-05-02 06:50] LABS: BUN/CREATININE RATIO 15.8 (10-20); CALCIUM 8.8 mg/dl (8.5-10.1); CREATININE 0.62 mg/dl (0.60-1.20); POTASSIUM 3.2 mmol/L (3.5-5.1)
[2017-05-02 06:53] LABS: CHOLESTEROL/HDL RATIO 4.9
--- NOTE | 2017-05-02 07:31 | Family Medicine Progress Note ---
Progress Note Date of Service May 02, 2017. Subjective Pt evaluation today including: conversation w/ patient, physical exam, chart review, lab review, review of studies Found pt lying comfortably, conversing easily with slurred speech, in NAD. Says she has no new pains (has chronic extremity pains), CP, SOB, or acute concerns. Wonders when she's going home. Constitutional: No fever, No chills Respiratory: No cough, No shortness of breath Cardiovascular: No chest pain, No edema Abdomen: No pain, No nausea, No vomiting Neurologic: + weakness, + problem reported (slurred speech) Medications Current Inpatient Medications Medications (Trade) Dose Ordered Sig/Klaudia Route Start Time Stop Time Status Last Admin Dose Admin Miscellaneous Information (Pharmacist Discharge Med Rec Consult) 1 ea UD PRN N/A 05/01/17 20:15 05/31/17 20:14 Heparin Sodium (Porcine) (Heparin Sq 5000 Unit/0.5ml) 5,000 unit Q8 SQ 05/01/17 22:00 05/31/17 21:59 05/02/17 05:42 5,000 UNIT Acetaminophen (Tylenol Tab) 650 mg Q4H PRN PO 05/01/17 20:30 05/31/17 20:29 Al Hydrox/Mg Hydrox/Simethicone (Maalox Max Susp) 15 ml Q4H PRN PO 05/01/17 20:30 05/31/17 20:29 Magnesium Hydroxide (Milk Of Magnesia Susp) 30 ml Q12H PRN PO 05/01/17 20:30 05/31/17 20:29 Zolpidem Tartrate (Ambien Tab) 5 mg HSZ PRN PO 05/01/17 20:30 05/31/17 20:29 Ondansetron HCl (Zofran Inj) 4 mg Q6H PRN IV 05/01/17 20:30 05/31/17 20:29 Nitroglycerin (Nitrostat Tab) 0.4 mg UD PRN SL 05/01/17 20:30 05/31/17 20:29 Polyethylene (Miralax Powder Packet) 17 gm DAILY PRN PO 05/01/17 20:30 05/31/17 20:29 Albuterol (Ventolin Hfa Inhaler) 2 puffs DAILY INH 05/02/17 09:00 06/01/17 08:59 05/02/17 08:29 2 PUFFS Allopurinol (Zyloprim Tab) 300 mg QAM PO 05/02/17 09:00 06/01/17 08:59 05/02/17 08:31 300 MG Furosemide (Lasix Tab) 40 mg BID17 PO 05/01/17 21:00 05/31/17 20:59 05/02/17 08:31 40 MG Nicotine (Nicoderm Cq 21MG Patch) 1 patch DAILY TD 05/02/17 09:00 06/01/17 08:59 05/02/17 08:31 1 PATCH Spironolactone (Aldactone Tab) 25 mg DAILY PO 05/02/17 09:00 06/01/17 08:59 05/02/17 08:29 25 MG Tolterodine Tartrate (Detrol LA Cap) 2 mg DAILY PO 05/02/17 09:00 06/01/17 08:59 05/02/17 08:30 2 MG Verapamil HCl (Calan-Sr Tab) 240 mg BID PO 05/01/17 21:00 05/31/17 20:59 05/02/17 08:30 240 MG Potassium Chloride (Klor-Con Tab) 20 meq QAM PO 05/02/17 09:00 06/01/17 08:59 05/02/17 08:31 20 MEQ Ceftriaxone Sodium 1 gm/ Dextrose 50 ml @ 100 mls/hr Q24H IV 05/01/17 23:00 05/08/17 22:59 05/01/17 23:53 100 MLS/HR Ioversol (Optiray 320) 100 ml UD PRN IV 05/01/17 23:00 05/05/17 22:59 Clindamycin Phosphate 900 mg/ Dextrose 56 ml @ 100 mls/hr Q8H IV 05/02/17 08:00 05/09/17 00:00 05/02/17 08:28 100 MLS/HR Objective Vital Signs Date Time Temp Pulse Resp B/P (MAP) Pulse Ox O2 Delivery O2 Flow Rate FiO2 05/02/17 07:17 36.8 62 22 153/74 (100) 93 Nasal Cannula 2.0 05/02/17 04:00 94 Nasal Cannula 2.0 05/02/17 04:00 36.5 64 20 156/71 (99) 93 Nasal Cannula 2.0 05/01/17 23:59 94 Nasal Cannula 2.0 05/01/17 22:30 36.7 74 18 173/88 94 Nasal Cannula 2.0 05/01/17 21:22 84 24 215/102 94 05/01/17 19:27 71 25 152/78 94 Nasal Cannula 2.0 05/01/17 19:21 75 192/113 05/01/17 19:04 79 23 200/112 90 Room Air 05/01/17 17:02 Room Air 05/01/17 17:01 Room Air 05/01/17 16:45 93 05/01/17 16:20 36.8 96 22 199/89 93 Room Air Physical Exam General Appearance: no apparent distress Respiratory/Chest: lungs clear, normal breath sounds, no respiratory distress Cardiovascular: regular rate, rhythm, no edema, no murmur Abdomen: normal bowel sounds, non tender, soft Extremities: no pedal edema Neurologic/Psychiatric: alert, normal mood/affect, oriented x 3, + motor weakness Notes: - RUE and RLE 4/5 strength. LUE and LLE 5/5 strength. Some RUE drift. Distal sensation grossly equal/intact. Laboratory Results 05/02/17 05:14 Red Blood Count 4.82, Mean Corpuscular Volume 92.9, Mean Corpuscular Hemoglobin 30.1, Mean Corpuscular Hemoglobin Concent 32.4, Mean Platelet Volume 11.3, Neutrophils (%) (Auto) 59.1, Lymphocytes (%) (Auto) 25.5, Monocytes (%) (Auto) 13.2, Eosinophils (%) (Auto) 1.6, Basophils (%) (Auto) 0.4, Neutrophils # (Auto ) 4.84, Lymphocytes # (Auto) 2.09, Monocytes # (Auto) 1.08, Eosinophils # (Auto ) 0.13, Basophils # (Auto) 0.03 05/02/17 05:14 Test 05/01/17 16:50 05/01/17 18:25 05/02/17 05:14 Activated Partial Thromboplast Time 31.4 SECONDS (21.0-31.0) Partial Thromboplastin Ratio 1.2 Magnesium Level 2.2 mg/dl (1.8-2.4) Total Bilirubin 0.5 mg/dl (0.2-1) Direct Bilirubin 0.1 mg/dl (0-0.2) Aspartate Amino Transf (AST/SGOT) 14 U/L (15-37) Alanine Aminotransferase (ALT/SGPT) 17 U/L (12-78) Alkaline Phosphatase 84 U/L (45-117) Troponin I < 0.015 ng/ml (0-0.045) Total Protein 7.1 gm/dl (6.4-8.2) Albumin 3.7 gm/dl (3.4-5.0) Thyroid Stimulating Hormone (TSH) 3.500 uIu/ml (0.300-4.500) Urine Color YELLOW Urine Appearance CLEAR (CLEAR) Urine pH 7.5 (4.5-7.5) Urine Specific [place] 1.013 (1.000-1.030) Urine Protein NEG (NEG) Urine Glucose (UA) NEG (NEG) Urine Ketones NEG (NEG) Urine Occult Blood NEG (NEG) Urine Nitrite NEG (NEG) Urine Bilirubin NEG (NEG) Urine Urobilinogen NEG (NEG) Urine Leukocyte Esterase NEG (NEG) White Blood Count 8.19 K/uL (4.8-10.8) Red Blood Count 4.82 M/uL (4.2-5.4) Hemoglobin 14.5 g/dL (12.0-16.0) Hematocrit 44.8 % (37-47) Mean Corpuscular Volume 92.9 fL (80-100) Mean Corpuscular Hemoglobin 30.1 pg (25-34) Mean Corpuscular Hemoglobin Concent 32.4 g/dl (32-36) Platelet Count 223 K/uL (130-400) Mean Platelet Volume 11.3 fL (7.4-10.4) Neutrophils (%) (Auto) 59.1 % Lymphocytes (%) (Auto) 25.5 % Monocytes (%) (Auto) 13.2 % Eosinophils (%) (Auto) 1.6 % Basophils (%) (Auto) 0.4 % Neutrophils # (Auto) 4.84 K/uL (1.4-6.5) Lymphocytes # (Auto) 2.09 K/uL (1.2-3.4) Monocytes # (Auto) 1.08 K/uL (0.11-0.59) Eosinophils # (Auto) 0.13 K/uL (0-0.5) Basophils # (Auto) 0.03 K/uL (0-0.2) RDW Standard Deviation 48.1 fL (36.4-46.3) RDW Coefficient of Variation 14.2 % (11.5-14.5) Immature Granulocyte % (Auto) 0.2 % Immature Granulocyte # (Auto) 0.02 K/uL (0.00-0.02) Prothrombin Time 10.7 SECONDS (9.0-12.0) Prothromb Time International Ratio 1.0 (0.9-1.1) Anion Gap 7.0 mmol/L (3-11) Est Creatinine Clear Calc Drug Dose 107.0 ml/min Estimated GFR () 107.4 Estimated GFR (Non- 92.7 BUN/Creatinine Ratio 15.8 (10-20) Calcium Level 8.8 mg/dl (8.5-10.1) Triglycerides Level 206 mg/dl (0-150) Cholesterol Level 228 mg/dl (0-200) HDL Cholesterol 47 mg/dl LDL Cholesterol, Calculated 140 mg/dl VLDL Cholesterol, Calculated 41 mg/dl Cholesterol/HDL Ratio 4.9 Assessment and Plan 66 yo female c/o right arm and leg weakness noted on Tues 19Sep, ? similar sx but less pronounced during prior week. Right-sided weakness and slurred speech: Negative CT scan in ED. Delining further impaging - MRA head and neck, and MRI brain, stating she cannot remain lying down for that long. - Started on plavix. Stopped home ASA 81. EKG 22Sep NSR 88. - Pt has allergy to statins. - [id number] CT head noted nothing acute but old lacunar infarct in right basal ganglia. - Started neuro checks. [ ] Ordered CTA head and neck in lieu of above. [ ] Pending consults to neuro, speech therapy, PT, OT - appreciate expertise. - Started on aspiration precautions. [ ] Echocardiogram ordered. Pneumonia: Denies known recent illness, fevers, cough, N/V. On admit afebrile, clear lungs, no leukocytosis on labs. - 22Sep pCXR one view noted pulmonary vascular congestion and mild superimposed infiltrate right base. - Question if source is aspiration. Reportedly pt failed dysphagia screen in the ED, then got a moisturized swab of the mouth and passed her dysphagia screen on the floor. - 23Sep started on clindamycin 900 mg IV q8h and ceftriaxone 1 gram IV daily. Hypokalemia: K 3.2 on admit. Replaced via IV. COPD: Reported hx smoking x 50 years, perhaps 1/2 to 1 ppd. - On home albuterol. - Nicotine 21mg TD patch. HTN: - On home Verapamil SR 240 mg BID, Lasix 40 mg BID, and Spironolactone 25mg daily. - Elevated on admit, given metoprolol 5 mg IV. Urinary incontinence: Continue home toleterodine as inpt. Prediabetes: Per report. Glc so far were 94 & 81. [ ] Will check HbA1c. Disposition: Pending - Uses a motorized scooter to get around at baseline. - PT and OT onboard, appreciate recs. DVT prophy: Heparin q8h. Code status: Full code Discussed the above on attending rounds this morning. TEO, PGY1 Family Medicine Resident Tracking Resident Involvement: Resident Care Provided Care Provided: Adult Hospital Medicine (inpt rounds) Reviewed: Pt Seen/Exam by Me History no new concerns left arm weakness getting better speech clear Constitutional: denies: fever Respiratory: negative: short of breath Cardiovascular: denies chest pain General Appearance: no apparent distress Respiratory: lungs clear, no respiratory distress Cardiovascular: regular rate, rhythm Neurologic/Psychiatric: alert, oriented x 3, other (left arm with 4/5 strength. ) Assessment/Plan Resident Physician Supervision Note: I was present with Dr. Shaw in bedside. I verified the le history and physical, reviewed labs and image studies, discussed the case with the resident and agree with the findings and care plan.
[2017-05-02] MEDS ORDERED: CLINDAMYCIN IV 900 MG in DEXTROSE 5% 50ML 50 ML IV SCH (08:00)
[2017-05-02] MEDS: SPIRONOLACTONE 25 MG TAB PO SCH (08:29)
[2017-05-02] MEDS: ALBUTEROL HFA 8 GM INHALER INH SCH (08:29)
[2017-05-02] MEDS: TOLTERODINE TARTRATE LA 2 MG CAPCR PO SCH (08:30)
[2017-05-02] MEDS: VERAPAMIL HCL 240 MG TABCR PO SCH ×2 (08:30→21:37)
[2017-05-02] MEDS: POTASSIUM CHLORIDE 20 MEQ TABCR PO SCH (08:31)
[2017-05-02] MEDS: FUROSEMIDE 40 MG TAB PO SCH ×2 (08:31→17:58)
[2017-05-02] MEDS: ALLOPURINOL 300 MG TAB PO SCH (08:31)
[2017-05-02] MEDS: NICOTINE 21 MG/24 HR TDSY TD SCH (08:31)
[2017-05-02] MEDS ORDERED: ASPIRIN 81 MG ECTAB PO SCH (09:00)
[2017-05-02] MEDS ORDERED: CLOPIDOGREL BISULFATE 75 MG TAB PO SCH (09:00)
--- NOTE | 2017-05-02 11:24 | Neurology Consultation ---
Neurology Consultation Date of Consultation: May 02, 2017. Attending Physician: Erin Altman M.D. Primary Care Physician: Franklin Alarcon M.D. Reason for Consultation: Consultation for stroke like symptoms History of Present Illness Source: patient, hospital records This is a 66-year-old right handed female who presents with new onset right upper and lower extremity weakness since Thursday. She reports that it happened after her eye surgery. She reports that she continues to take her aspirin on a daily basis without any missed medication doses. She is never had strokelike symptoms in the past. No seizure-like activity. No headaches in association. She reports that initially felt like her right arm and leg got numb and then weak. The numbness is resolved but she still has weakness. She thinks that maybe her speech got a little bit slurred but did not appreciate this. Potentially could've been secondary to dry mouth since this seemed to occur after being started on spironolactone. She denies any changes with her vision. No loss of vision. No abnormal headaches. Denies any chest pain, heart palpitations, or shortness of breath. Patient reports that her pupils were asymmetric yesterday because she had her left eye dilated at her eye appointment earlier in the day. Patient does have chronic neck pain and reports history of cervical radiculopathy but she denies any current pain shooting down her arms. Denies any recent injuries. Patient reports that she is not able to do MRI because she cannot lay flat plus has claustrophobia. She is able to tolerate CT scan but did not understand why she was getting another one which is why she refused. CT of the head report and images were reviewed by myself. Signs of old right basal ganglia lacunar stroke. Total cholesterol 228, LDL 140, HDL 47, triglycerides 206, hemoglobin A1c from 03/06/2017 was 5.4. Echo results are pending Past Medical/Surgical History Medical Problems: (1) HTN (hypertension) Status: Chronic (2) PNA (pneumonia) Status: Acute (3) Right sided weakness Status: Acute COPD, hypertension, cervical radiculopathy and neck pain, hypertension, prediabetes with peripheral neuropathy Family History Father with CAD and lung cancer Brother with CAD Diabetes in the family Social History Positive every day tobacco use. Drinks maybe one drink per day. No illegal drug use. Smokeless Tobacco Use: No Alcohol Use: none Drug Use: none Marital Status: Occupation Status: employed Allergies Coded Allergies: Grass (Verified Allergy, Intermediate, nasal conjestion,watery eyes, ) Ibuprofen (Verified Allergy, Intermediate, hives, post nasal drip, TAKES ASA AT HOME, 05/01/17) Indomethacin (Verified Allergy, Intermediate, hives, TAKES ASA AT HOME, ) NSAIDs (Verified Allergy, Intermediate, hives, TAKES ASA AT HOME, 05/01/17) Naproxen (Verified Allergy, Intermediate, hives, 05/01/17) Ragweed (Verified Allergy, Intermediate, nasal conjestion, watery eyes, ) Ampicillin (Unverified Allergy, Mild, N/V AND HIVES, 05/01/17) Salicylates (Unverified Allergy, Mild, DIARRHEA, RASH, 05/01/17) LOW-DOSE ASPIRIN OKAY Statins (Verified Allergy, Unknown, MUSCLE ACHES, 05/01/17) Uncoded Allergies: acryllic (Allergy, Intermediate, nasal conjestion, wheezing, 06/07/14) Current Inpatient Medications Current Inpatient Medications Medications (Trade) Dose Ordered Sig/Klaudia Route Start Time Stop Time Status Last Admin Dose Admin Miscellaneous Information (Pharmacist Discharge Med Rec Consult) 1 ea UD PRN N/A 05/01/17 20:15 05/31/17 20:14 Heparin Sodium (Porcine) (Heparin Sq 5000 Unit/0.5ml) 5,000 unit Q8 SQ 05/01/17 22:00 05/31/17 21:59 05/02/17 05:42 5,000 UNIT Acetaminophen (Tylenol Tab) 650 mg Q4H PRN PO 05/01/17 20:30 05/31/17 20:29 Al Hydrox/Mg Hydrox/Simethicone (Maalox Max Susp) 15 ml Q4H PRN PO 05/01/17 20:30 05/31/17 20:29 Magnesium Hydroxide (Milk Of Magnesia Susp) 30 ml Q12H PRN PO 05/01/17 20:30 05/31/17 20:29 Zolpidem Tartrate (Ambien Tab) 5 mg HSZ PRN PO 05/01/17 20:30 05/31/17 20:29 Ondansetron HCl (Zofran Inj) 4 mg Q6H PRN IV 05/01/17 20:30 05/31/17 20:29 Nitroglycerin (Nitrostat Tab) 0.4 mg UD PRN SL 05/01/17 20:30 05/31/17 20:29 Polyethylene (Miralax Powder Packet) 17 gm DAILY PRN PO 05/01/17 20:30 05/31/17 20:29 Albuterol (Ventolin Hfa Inhaler) 2 puffs DAILY INH 05/02/17 09:00 06/01/17 08:59 05/02/17 08:29 2 PUFFS Allopurinol (Zyloprim Tab) 300 mg QAM PO 05/02/17 09:00 06/01/17 08:59 05/02/17 08:31 300 MG Furosemide (Lasix Tab) 40 mg BID17 PO 05/01/17 21:00 05/31/17 20:59 05/02/17 08:31 40 MG Nicotine (Nicoderm Cq 21MG Patch) 1 patch DAILY TD 05/02/17 09:00 06/01/17 08:59 05/02/17 08:31 1 PATCH Spironolactone (Aldactone Tab) 25 mg DAILY PO 05/02/17 09:00 06/01/17 08:59 05/02/17 08:29 25 MG Tolterodine Tartrate (Detrol LA Cap) 2 mg DAILY PO 05/02/17 09:00 06/01/17 08:59 05/02/17 08:30 2 MG Verapamil HCl (Calan-Sr Tab) 240 mg BID PO 05/01/17 21:00 05/31/17 20:59 05/02/17 08:30 240 MG Potassium Chloride (Klor-Con Tab) 20 meq QAM PO 05/02/17 09:00 06/01/17 08:59 05/02/17 08:31 20 MEQ Ceftriaxone Sodium 1 gm/ Dextrose 50 ml @ 100 mls/hr Q24H IV 05/01/17 23:00 05/08/17 22:59 05/01/17 23:53 100 MLS/HR Ioversol (Optiray 320) 100 ml UD PRN IV 05/01/17 23:00 05/05/17 22:59 Clindamycin Phosphate 900 mg/ Dextrose 106 ml @ 100 mls/hr Q8H IV 05/02/17 16:00 05/09/17 15:59 Review of Systems Complete review systems otherwise negative except for the above noted in history of present illness Physical Exam Vital Signs (Past 24 Hrs): Date Time Temp Pulse Resp B/P (MAP) Pulse Ox O2 Delivery O2 Flow Rate FiO2 05/02/17 08:00 95 Nasal Cannula 4.0 05/02/17 07:17 36.8 62 22 153/74 (100) 93 Nasal Cannula 2.0 05/02/17 04:00 94 Nasal Cannula 2.0 05/02/17 04:00 36.5 64 20 156/71 (99) 93 Nasal Cannula 2.0 05/01/17 23:59 94 Nasal Cannula 2.0 05/01/17 22:30 36.7 74 18 173/88 94 Nasal Cannula 2.0 05/01/17 21:22 84 24 215/102 94 05/01/17 19:27 71 25 152/78 94 Nasal Cannula 2.0 05/01/17 19:21 75 192/113 05/01/17 19:04 79 23 200/112 90 Room Air 05/01/17 17:02 Room Air 05/01/17 17:01 Room Air 05/01/17 16:45 93 05/01/17 16:20 36.8 96 22 199/89 93 Room Air Gen.: Patient is alert and sitting in bed, in no acute distress. HEENT: Normocephalic /atraumatic, no scleral icterus Heart: Regular rate and rhythm Extremities: No gross deformities or rashes noted Neurological examination: Mental status: Patient is alert and oriented x3. Attention and concentration normal for the situation. Good fund of knowledge. Able to give her own history. Speech is fluent without any dysarthria or aphasia noted Cranial nerve: Funduscopic examination was unremarkable. No papilledema. Pupils equally round and reactive to light. Extraocular muscles intact without nystagmus. No facial asymmetry noted. Facial sensation intact. Tongue is midline. Good palatal elevation. Good shoulder shrug bilaterally. Hearing grossly intact to voice. Strength: 5/5 both proximal and distally in left upper and lower extremity with some give way weakness with left hip flexion. Right upper extremity 4/5 with arm drift. Right lower extremity 4+/5 proximally and 5/5 distally. Sensation: Grossly intact to light touch in all extremities. Deep tendon reflexes: +1 in bilateral biceps, brachioradialis and patellar. Toes were downgoing to plantar stimulation on the left but possibly had initial right upgoing toe to plantar stimulation that was not reproducible due to withdrawal of foot. Coordination: Patient had good finger to nose without dysmetria. Had difficult time performing on the right due to weakness. Station sitting on the side of the bed was normal Laboratory Results Past 24 Hours: 05/02/17 05:14 Red Blood Count 4.82, Mean Corpuscular Volume 92.9, Mean Corpuscular Hemoglobin 30.1, Mean Corpuscular Hemoglobin Concent 32.4, Mean Platelet Volume 11.3, Neutrophils (%) (Auto) 59.1, Lymphocytes (%) (Auto) 25.5, Monocytes (%) (Auto) 13.2, Eosinophils (%) (Auto) 1.6, Basophils (%) (Auto) 0.4, Neutrophils # (Auto ) 4.84, Lymphocytes # (Auto) 2.09, Monocytes # (Auto) 1.08, Eosinophils # (Auto ) 0.13, Basophils # (Auto) 0.03 05/02/17 05:14 Test 05/01/17 16:50 05/01/17 18:25 05/02/17 05:14 Activated Partial Thromboplast Time 31.4 SECONDS (21.0-31.0) Partial Thromboplastin Ratio 1.2 Magnesium Level 2.2 mg/dl (1.8-2.4) Total Bilirubin 0.5 mg/dl (0.2-1) Direct Bilirubin 0.1 mg/dl (0-0.2) Aspartate Amino Transf (AST/SGOT) 14 U/L (15-37) Alanine Aminotransferase (ALT/SGPT) 17 U/L (12-78) Alkaline Phosphatase 84 U/L (45-117) Troponin I < 0.015 ng/ml (0-0.045) Total Protein 7.1 gm/dl (6.4-8.2) Albumin 3.7 gm/dl (3.4-5.0) Thyroid Stimulating Hormone (TSH) 3.500 uIu/ml (0.300-4.500) Urine Color YELLOW Urine Appearance CLEAR (CLEAR) Urine pH 7.5 (4.5-7.5) Urine Specific [place] 1.013 (1.000-1.030) Urine Protein NEG (NEG) Urine Glucose (UA) NEG (NEG) Urine Ketones NEG (NEG) Urine Occult Blood NEG (NEG) Urine Nitrite NEG (NEG) Urine Bilirubin NEG (NEG) Urine Urobilinogen NEG (NEG) Urine Leukocyte Esterase NEG (NEG) White Blood Count 8.19 K/uL (4.8-10.8) Red Blood Count 4.82 M/uL (4.2-5.4) Hemoglobin 14.5 g/dL (12.0-16.0) Hematocrit 44.8 % (37-47) Mean Corpuscular Volume 92.9 fL (80-100) Mean Corpuscular Hemoglobin 30.1 pg (25-34) Mean Corpuscular Hemoglobin Concent 32.4 g/dl (32-36) Platelet Count 223 K/uL (130-400) Mean Platelet Volume 11.3 fL (7.4-10.4) Neutrophils (%) (Auto) 59.1 % Lymphocytes (%) (Auto) 25.5 % Monocytes (%) (Auto) 13.2 % Eosinophils (%) (Auto) 1.6 % Basophils (%) (Auto) 0.4 % Neutrophils # (Auto) 4.84 K/uL (1.4-6.5) Lymphocytes # (Auto) 2.09 K/uL (1.2-3.4) Monocytes # (Auto) 1.08 K/uL (0.11-0.59) Eosinophils # (Auto) 0.13 K/uL (0-0.5) Basophils # (Auto) 0.03 K/uL (0-0.2) RDW Standard Deviation 48.1 fL (36.4-46.3) RDW Coefficient of Variation 14.2 % (11.5-14.5) Immature Granulocyte % (Auto) 0.2 % Immature Granulocyte # (Auto) 0.02 K/uL (0.00-0.02) Prothrombin Time 10.7 SECONDS (9.0-12.0) Prothromb Time International Ratio 1.0 (0.9-1.1) Anion Gap 7.0 mmol/L (3-11) Est Creatinine Clear Calc Drug Dose 107.0 ml/min Estimated GFR () 107.4 Estimated GFR (Non- 92.7 BUN/Creatinine Ratio 15.8 (10-20) Calcium Level 8.8 mg/dl (8.5-10.1) Triglycerides Level 206 mg/dl (0-150) Cholesterol Level 228 mg/dl (0-200) HDL Cholesterol 47 mg/dl LDL Cholesterol, Calculated 140 mg/dl VLDL Cholesterol, Calculated 41 mg/dl Cholesterol/HDL Ratio 4.9 Imaging As noted above in history of present illness Impression This is a 66-year-old right-handed female with acute right hemiplegia and resolved right sensory deficits starting on Thursday. Overall presentation is concerning for a left hemispheric stroke. Differential diagnosis could include a cervical lesion since it is not clear that the patient has had any facial involvement. Reported slurred speech was not well appreciated by family members and could have been due to dry mouth. Known stroke risk factors include hypertension, dyslipidemia, prediabetes, and tobacco abuse. Plan Explained and encouraged patient to receive CTA of the head and neck for further evaluation of stroke and stroke risk factors since she is not able to lay flat and tolerate MRI. Agree with switching aspirin to Plavix for secondary stroke prevention. Follow-up PT/OT and speech therapies for discharge planning (patient would likely benefit from inpatient rehabilitation) Blood pressure recommendations while in hospital 175/95-150/80 Avoid hypotension and dehydration Stroke risk factor modifications and recommendations: Blood pressure recommendations for the first month post hospital discharge 150/ 90-130/80, and after that blood pressure recommendations 130/80-110/70 Total cholesterol goal 100- 200 and LDL goal less than 70 Hemoglobin A1c goal less than 7 Encourage cardiovascular exercise at least 3 times a week for 30 minutes. Smoking cessation Follow-up in neurology clinic in 1 month for post stroke hospital follow-up. If CTA is not supportive of a left hemispheric stroke, could consider CT or MRI of the neck to rule out cervical etiologies for right hemiplegia and could consider EMG as an outpatient. Thank you for allowing me to participate in this patient's care. If there is any questions or concerns, feel free to call/page me.
[2017-05-02] MEDS ORDERED: POTASSIUM CITRATE 10 MEQ TAB PO ONE (14:30)
--- NOTE | 2017-05-02 15:01 | ECHOCARDIOGRAM REPORT ---
*NOTICE TO RECEIVING LIBERTARIAN AGENCY This information is strictly Confidential and protected under [place] law. [place] law prohibits you from making any further disclosure of this information unless further disclosure is expressly permitted by the written consent of the person to whom it pertains or is authorized by law. A general authorization for the release of medical or other information is not sufficient for this purpose. Hospital accepts no responsibility if the information is made available to any other person, INCLUDING THE PATIENT. Interpretation Summary * Name: TAMMY GARCIA Study Date: 05/02/2017 08:31 AM BP: 156/71 mmHg * Patient Location: C.2T\S\S230\S\2 HR: 64 * : 1950 (M/d/yyyy) Gender: Female Height: 64 in * Age: 66 yrs Ethnicity: CA Weight: 253 lb * Ordering Physician: Maxim Cavanaugh * Referring Physician: Self, Referred * Performed By: Nona Anderson RDCS * * Reason For Study: Cerebral ischemia/embolus * BSA: 2.2 m2 * -- Conclusions -- * 1. Normal left ventricular size with hyperdynamic systolic function. EF 65-70%. No regional wall motion abnormalities. Mild concentric left ventricular hypertrophy. * 2. The left atrium is moderately dilated. * 3. Aortic valve sclerosis mild, without significant aortic valvular stenosis. * 4. Technically difficult study, enhanced with IV Definity. * 5. No prior study available for comparison. Procedure Details * A complete two-dimensional transthoracic echocardiogram was performed (2D, M-mode, Doppler and color flow Doppler). * A saline contrast injection was performed to assess for cardiac shunting. * The injection was performed through an intravenous line in the left arm. * The attending nurse who injected the saline contrast was Deepika Farias RN. * A total of 20 cc of agitated saline was given. * A contrast injection of Definity was performed to improve assessment of LV function. * Contrast was injected into an intravenous site in the left arm. * One vial of Definity ultrasound contrast was diluted in normal saline to a total volume of 10 ml. A total of '2' ml of solution was administered during imaging. * Lot # [id number] of Definity utilized for procedure. * Expiration date MAY 27. * The attending nurse who injected the contrast agent was Deepika Farias RN. Left Ventricle * Normal left ventricular size with hyperdynamic systolic function. EF 65-70%. No regional wall motion abnormalities. Mild concentric left ventricular hypertrophy. Right Ventricle * The right ventricle is normal in size and function. * The right ventricular systolic function is normal as assessed by tricuspid annular plane systolic excursion (TAPSE) (normal >1.5 cm). Atria * The left atrium is moderately dilated. * Right atrial size is normal. * No visualized ASD. Inadequate image quality following agitated saline injection. Mitral Valve * There is mild to moderate mitral annular calcification. * There is no mitral valve stenosis. * No visualized significant mitral regurgitation. Tricuspid Valve * The tricuspid valve is not well visualized. * There is no tricuspid stenosis. * Significant tricuspid regurgitation is absent. Aortic Valve * The aortic valve is trileaflet. * Aortic valve sclerosis mild, without significant aortic valvular stenosis. * No hemodynamically significant valvular aortic stenosis. * No aortic regurgitation is present. Pulmonic Valve * The pulmonary valve is inadequately visualized, but the Doppler data is adequate for interpretation. * There is no pulmonic valvular stenosis. * There is no significant pulmonary regurgitation. Great Vessels * The aortic root is normal size. * Ascending aorta of normal dimension * Aortic arch of normal dimension. Pericardium/Pleural * There is no pericardial effusion. Great Vessels * Normal inferior vena cava size and collapsability with sniff indicates a normal right atrial pressure of 3 mmHg MMode 2D Measurements and Calculations IVSd 1.2 cm LVIDd 3.3 cm LVIDs 2.1 cm LVPWd 1.2 cm IVS/LVPW 1.0 FS 37.1 % EDV(Teich) 44.9 ml ESV(Teich) 14.3 ml EF(Teich) 68.3 % EDV(cubed) 36.8 ml ESV(cubed) 9.2 ml EF(cubed) 75.1 % LV mass(C)d 126.9 grams LV mass(C)dI 58.7 grams/m\S\2 SV(Teich) 30.7 ml SI(Teich) 14.2 ml/m\S\2 SV(cubed) 27.6 ml SI(cubed) 12.8 ml/m\S\2 Ao root diam 3.4 cm Ao root area 9.0 cm\S\2 ACS 2.1 cm asc Aorta Diam 2.7 cm LVAd ap4 32.4 cm\S\2 LVLd ap4 7.7 cm EDV(MOD-sp4) 111.9 ml EDV(sp4-el) 115.7 ml LVAs ap4 17.2 cm\S\2 LVLs ap4 6.9 cm ESV(MOD-sp4) 36.4 ml ESV(sp4-el) 36.6 ml EF(MOD-sp4) 67.5 % EF(sp4-el) 68.4 % LVAd ap2 31.2 cm\S\2 LVLd ap2 7.3 cm EDV(MOD-sp2) 109.5 ml EDV(sp2-el) 113.3 ml LVAs ap2 17.4 cm\S\2 LVLs ap2 6.5 cm ESV(MOD-sp2) 39.5 ml ESV(sp2-el) 39.9 ml EF(MOD-sp2) 64.0 % EF(sp2-el) 64.8 % LVLd %diff -5.50 % EDV(MOD-bp) 109.9 ml LVLs %diff -6.12 % ESV(MOD-bp) 37.8 ml EF(MOD-bp) 65.6 % SV(MOD-sp4) 75.6 ml SI(MOD-sp4) 35.0 ml/m\S\2 SV(MOD-sp2) 70.0 ml SI(MOD-sp2) 32.4 ml/m\S\2 SV(MOD-bp) 72.0 ml SI(MOD-bp) 33.3 ml/m\S\2 SV(sp4-el) 79.1 ml SI(sp4-el) 36.6 ml/m\S\2 SV(sp2-el) 73.4 ml SI(sp2-el) 34.0 ml/m\S\2 Doppler Measurements and Calculations MV E max yomaira 152.3 cm/sec MV A max yoamira 110.1 cm/sec MV E/A 1.4 MV V2 max 160.2 cm/sec MV max PG 10.3 mmHg MV V2 mean 100.3 cm/sec MV mean PG 4.5 mmHg MV V2 VTI 53.3 cm MV P1/2t max yomaira 161.5 cm/sec MV P1/2t 82.5 msec MVA(P1/2t) 2.7 cm\S\2 MV dec slope 573.3 cm/sec\S\2 MV dec time 0.26 sec Ao V2 max 157.5 cm/sec Ao max PG 9.9 mmHg Ao max PG (full) 2.6 mmHg LV V1 max PG 7.3 mmHg LV V1 max 135.3 cm/sec TV E max yomaira 62.6 cm/sec PA V2 max 97.7 cm/sec PA max PG 3.8 mmHg PA acc slope 745.8 cm/sec\S\2 PA acc time 0.10 sec PA pr(Accel) 33.1 mmHg
[2017-05-02] MEDS ORDERED: CLOPIDOGREL BISULFATE 75 MG TAB PO ONE (17:00)
--- NOTE | 2017-05-02 17:10 | DIAGNOSTIC IMAGING REPORT ---
HEAD CTA HISTORY: STROKE TECHNIQUE: Multiaxial CT images of the head were performed after the intravenous administration of contrast to evaluate the major cerebral vessels. Maximum intensity projection images were also obtained. A dose lowering technique was utilized adhering to the principles of ALARA. COMPARISON: None. FINDINGS: There is no mass, hematoma, midline shift, or acute infarct. Visualized intracranial internal carotid arteries, distal vertebral arteries, and basilar artery are widely patent. There is no significant stenosis, occlusion, or aneurysm seen within the bilateral ACAs, MCAs, or game producer. IMPRESSION: No significant stenosis, occlusion, or aneurysm within the [place]. Electronically signed by: Saurav Bingham M.D. 05/02/2017 5:08 PM Dictated Date/Time: 05/02/2017 5:06 PM
--- NOTE | 2017-05-02 17:13 | DIAGNOSTIC IMAGING REPORT ---
NECK CTA HISTORY: STROKE TECHNIQUE: Multiaxial CT images of the neck were performed following the intravenous administration of contrast to evaluate the major cervical vessels. Maximum intensity projection images were also obtained. All measurements were calculated based on NASCET criteria. A dose lowering technique was utilized adhering to the principles of ALARA. COMPARISON STUDY: None. FINDINGS: The aortic arch and proximal great vessels are widely patent. There is no significant stenosis, occlusion, or dissection identified within the bilateral common carotid, internal carotid, or left vertebral arteries. Mild focal stenosis within the intracranial portion of the distal right vertebral artery. The cervical portion of the right vertebral artery is widely patent. The bilateral distal internal carotid arteries are tortuous. The bilateral internal jugular veins are patent. IMPRESSION: No significant stenosis, occlusion, or dissection identified within the carotid or cervical vertebral arteries. Mild focal stenosis within the intracranial portion of the distal right vertebral artery. Electronically signed by: Saurav Bingham M.D. 05/02/2017 5:12 PM Dictated Date/Time: 05/02/2017 5:09 PM
[2017-05-02] MEDS: CLINDAMYCIN IV SCH ×2 (17:59→23:24)
[2017-05-02] MEDS: DEXTROSE 5% IV SCH ×2 (17:59→23:24)
[2017-05-02] MEDS ORDERED: LEVOFLOXACIN / D5W 750 MG in PREMIXED IN D5W 150 ML IV SCH (20:00)
[2017-05-02] MEDS: CEFTRIAXONE SOD INJ 1 GM in DEXTROSE 5% ADD-VANTAGE 50ML 50 ML IV SCH (21:37)
[2017-05-03] VITALS (8 sets, daily range): BP systolic 130–187; BP diastolic 76–96; PULSE 60–86; TEMP 36.5–36.9; O2SAT 91–95
[2017-05-03] MEDS: HEPARIN SOD 5000 UNIT/0.5 ML CARP SQ SCH ×3 (05:40→20:57)
--- NOTE | 2017-05-03 05:53 | Family Medicine Progress Note ---
Progress Note Date of Service May 03, 2017. Subjective Pt evaluation today including: conversation w/ patient, physical exam, chart review, lab review Found pt resting in bed comfortably. Ongoing right-sided weakness and slurred speech, says feels unchanged. Ongoing cough. Denies CP, SOB, abd pain, headache, or other acute concerns. Constitutional: No fever, No chills Respiratory: + cough, No shortness of breath Cardiovascular: No chest pain, No edema Abdomen: No pain, No nausea, No vomiting Neurologic: + weakness Medications Current Inpatient Medications Medications (Trade) Dose Ordered Sig/Klaudia Route Start Time Stop Time Status Last Admin Dose Admin Miscellaneous Information (Pharmacist Discharge Med Rec Consult) 1 ea UD PRN N/A 05/01/17 20:15 05/31/17 20:14 Heparin Sodium (Porcine) (Heparin Sq 5000 Unit/0.5ml) 5,000 unit Q8 SQ 05/01/17 22:00 05/31/17 21:59 05/03/17 05:40 5,000 UNIT Acetaminophen (Tylenol Tab) 650 mg Q4H PRN PO 05/01/17 20:30 05/31/17 20:29 Al Hydrox/Mg Hydrox/Simethicone (Maalox Max Susp) 15 ml Q4H PRN PO 05/01/17 20:30 05/31/17 20:29 Magnesium Hydroxide (Milk Of Magnesia Susp) 30 ml Q12H PRN PO 05/01/17 20:30 05/31/17 20:29 Ondansetron HCl (Zofran Inj) 4 mg Q6H PRN IV 05/01/17 20:30 05/31/17 20:29 Nitroglycerin (Nitrostat Tab) 0.4 mg UD PRN SL 05/01/17 20:30 05/31/17 20:29 Polyethylene (Miralax Powder Packet) 17 gm DAILY PRN PO 05/01/17 20:30 05/31/17 20:29 Albuterol (Ventolin Hfa Inhaler) 2 puffs DAILY INH 05/02/17 09:00 06/01/17 08:59 05/02/17 08:29 2 PUFFS Allopurinol (Zyloprim Tab) 300 mg QAM PO 05/02/17 09:00 06/01/17 08:59 05/02/17 08:31 300 MG Furosemide (Lasix Tab) 40 mg BID17 PO 05/01/17 21:00 05/31/17 20:59 05/02/17 17:58 40 MG Nicotine (Nicoderm Cq 21MG Patch) 1 patch DAILY TD 05/02/17 09:00 06/01/17 08:59 05/02/17 08:31 1 PATCH Spironolactone (Aldactone Tab) 25 mg DAILY PO 05/02/17 09:00 06/01/17 08:59 05/02/17 08:29 25 MG Tolterodine Tartrate (Detrol LA Cap) 2 mg DAILY PO 05/02/17 09:00 06/01/17 08:59 05/02/17 08:30 2 MG Verapamil HCl (Calan-Sr Tab) 240 mg BID PO 05/01/17 21:00 05/31/17 20:59 05/02/17 21:37 240 MG Potassium Chloride (Klor-Con Tab) 20 meq QAM PO 05/02/17 09:00 06/01/17 08:59 05/02/17 08:31 20 MEQ Ceftriaxone Sodium 1 gm/ Dextrose 50 ml @ 100 mls/hr Q24H IV 05/01/17 23:00 05/08/17 22:59 05/02/17 21:37 100 MLS/HR Ioversol (Optiray 320) 100 ml UD PRN IV 05/01/17 23:00 05/05/17 22:59 Clindamycin Phosphate 900 mg/ Dextrose 106 ml @ 100 mls/hr Q8H IV 05/02/17 16:00 05/09/17 15:59 05/02/17 23:24 100 MLS/HR Clopidogrel Bisulfate (plAVix TAB) 75 mg QAM PO 05/03/17 09:00 06/02/17 08:59 Objective Vital Signs Date Time Temp Pulse Resp B/P (MAP) Pulse Ox O2 Delivery O2 Flow Rate FiO2 05/03/17 07:26 36.5 80 18 142/81 (101) 91 Nasal Cannula 2.0 05/03/17 05:30 169/76 (107) 05/03/17 04:00 Nasal Cannula 2.0 05/03/17 03:55 36.7 60 22 187/79 (115) 92 Nasal Cannula 2.0 05/03/17 00:00 Nasal Cannula 2.0 05/02/17 23:29 36.4 81 20 176/89 (118) 93 Nasal Cannula 2.0 05/02/17 20:01 Nasal Cannula 2.0 05/02/17 18:54 36.7 73 20 162/81 (108) 92 Nasal Cannula 2.0 05/02/17 16:00 Nasal Cannula 2.0 05/02/17 15:28 36.8 67 20 178/82 (114) 91 Nasal Cannula 2.0 05/02/17 12:00 Room Air 05/02/17 11:23 36.5 73 20 178/83 (114) 91 Nasal Cannula 2.0 Physical Exam General Appearance: no apparent distress Respiratory/Chest: normal breath sounds, no respiratory distress, + wheezing ( mild expiratory) Cardiovascular: regular rate, rhythm, no edema, no murmur Abdomen: normal bowel sounds, non tender, soft, + hernia (large umbilical hernia) Extremities: no pedal edema Laboratory Results 05/03/17 05:16 Red Blood Count 4.91, Mean Corpuscular Volume 92.7, Mean Corpuscular Hemoglobin 29.7, Mean Corpuscular Hemoglobin Concent 32.1, Mean Platelet Volume 10.8, Neutrophils (%) (Auto) 62.7, Lymphocytes (%) (Auto) 23.6, Monocytes (%) (Auto) 10.8, Eosinophils (%) (Auto) 2.2, Basophils (%) (Auto) 0.4, Neutrophils # (Auto ) 4.50, Lymphocytes # (Auto) 1.70, Monocytes # (Auto) 0.78, Eosinophils # (Auto ) 0.16, Basophils # (Auto) 0.03 05/03/17 05:16 Test 05/03/17 05:16 White Blood Count 7.19 K/uL (4.8-10.8) Red Blood Count 4.91 M/uL (4.2-5.4) Hemoglobin 14.6 g/dL (12.0-16.0) Hematocrit 45.5 % (37-47) Mean Corpuscular Volume 92.7 fL (80-100) Mean Corpuscular Hemoglobin 29.7 pg (25-34) Mean Corpuscular Hemoglobin Concent 32.1 g/dl (32-36) Platelet Count 217 K/uL (130-400) Mean Platelet Volume 10.8 fL (7.4-10.4) Neutrophils (%) (Auto) 62.7 % Lymphocytes (%) (Auto) 23.6 % Monocytes (%) (Auto) 10.8 % Eosinophils (%) (Auto) 2.2 % Basophils (%) (Auto) 0.4 % Neutrophils # (Auto) 4.50 K/uL (1.4-6.5) Lymphocytes # (Auto) 1.70 K/uL (1.2-3.4) Monocytes # (Auto) 0.78 K/uL (0.11-0.59) Eosinophils # (Auto) 0.16 K/uL (0-0.5) Basophils # (Auto) 0.03 K/uL (0-0.2) RDW Standard Deviation 48.2 fL (36.4-46.3) RDW Coefficient of Variation 14.2 % (11.5-14.5) Immature Granulocyte % (Auto) 0.3 % Immature Granulocyte # (Auto) 0.02 K/uL (0.00-0.02) Prothrombin Time 10.4 SECONDS (9.0-12.0) Prothromb Time International Ratio 1.0 (0.9-1.1) Anion Gap 6.0 mmol/L (3-11) Est Creatinine Clear Calc Drug Dose 87.1 ml/min Estimated GFR () 94.9 Estimated GFR (Non- 81.9 BUN/Creatinine Ratio 15.4 (10-20) Calcium Level 8.8 mg/dl (8.5-10.1) Assessment and Plan 66 yo female c/o right arm and leg weakness noted on Tues 19Sep, ? similar sx but less pronounced during prior week. Right-sided weakness and slurred speech: Left hemispheric lesion/cervical etiology. Not a tPA candidate due to sx duration. Pt says her slurred speech is new as of 19Sep but thinks it's due to a dry mouth, doesn't seem to concern her. Pt agreed to CT head on initial eval but has declined MRA head and neck, and MRI brain, stating she cannot remain lying down for that long. - Started on plavix. Pt has allergy to statins. Stopped home ASA 81. EKG 22Sep NSR 88. - [id number] CT head noted nothing acute but old lacunar infarct in right basal ganglia. - 23Sep Neuro consult: Re-recommended CTA head/neck. Switch ASA to plavix. F/ u PT/OT/speech for d/c plans. BP parameter recs. General stroke risk factor modification. F/u in their clinic in one month. - 23Sep CTA head and neck showed no significant arterial stenosis and mild focal stenosis within the intracranial portion of the distal right vertebral artery. - 23Sep Echocardiogram noted normal LV size, hyperdynamic systolic function, EF 65-70%, no regional wall motion abnormalities, mild LVH, left atrium moderately dilated. - Started neuro checks and aspiration precautions - 23Sep Speech eval: Regular diet with thin liquids, aspiration precautions, no additional speech therapy necessary. Pneumonia: Denies known recent illness, fevers, cough, N/V. On admit afebrile, clear lungs, no leukocytosis on labs. - 22Sep pCXR one view noted pulmonary vascular congestion and mild superimposed infiltrate right base. - Question if source is aspiration. Reportedly pt failed dysphagia screen in the ED, then got a moisturized swab of the mouth and passed her dysphagia screen on the floor. - 23Sep started on clindamycin 900 mg IV q8h and ceftriaxone 1 gram IV daily. Hypokalemia: K 3.2 on admit. Replaced via IV and PO. COPD: Reported hx smoking x 50 years, perhaps 1/2 to 1 ppd. - On home albuterol. - Nicotine 21mg TD patch. HTN: - On home Verapamil SR 240 mg BID, Lasix 40 mg BID, and Spironolactone 25mg daily. - Elevated on admit, given metoprolol 5 mg IV. Urinary incontinence: Continue home toleterodine as inpt. Prediabetes: Per report. Glc so far were 94 & 81. [ ] Will check HbA1c. Disposition: Pending. Working with case management for further inpt rehab at time of d/c. - Uses a motorized scooter to get around at baseline. - 23Sep OT: Recommended further inpt rehab. - 24Sep PT: Could consider outpt rehab. DVT prophy: Heparin q8h. Code status: Full code JCHEMA, PGY1 [employer] Tracking Resident Involvement: Resident Care Provided Care Provided: Adult Hospital Medicine (inpt rounds) Reviewed: Pt Seen/Exam by Me History no new concerns weakness improved in hand speech clear. concerned about her - he got admitted last night Constitutional: denies: fever Respiratory: negative: short of breath Cardiovascular: denies chest pain Gastrointestinal/Abdominal: negative: abdominal pain General Appearance: no apparent distress Respiratory: lungs clear, no respiratory distress Cardiovascular: regular rate, rhythm Gastrointestinal: normal bowel sounds, non tender, soft Neurologic/Psychiatric: alert, oriented x 3, other (right hand strength 4/5) Skin Characteristics: warm/dry Assessment/Plan Resident Physician Supervision Note: I independently interviewed and examined the patient and verified the le history and physical, reviewed labs and image studies, discussed the case with the resident Dr. Shaw and agree with the findings and care plan.
[2017-05-03 06:04] LABS: BASO % 0.4 %; BASO ABS # 0.03 K/uL (0-0.2); COMPLETE YES; EOS % 2.2 %; HEMATOCRIT 45.5 % (37-47); IG% 0.3 %; LYMPH % 23.6 %; MEAN CELL VOLUME 92.7 fL (80-100); MEAN CORPUSCULAR HEMOGLOBIN 29.7 pg (25-34); MEAN CORPUSCULAR HGB CONC 32.1 g/dl (32-36); MEAN PLATELET VOLUME 10.8 fL (7.4-10.4); MONO % 10.8 %; NEUT % 62.7 %; PLATELET COUNT 217 K/uL (130-400); RED BLOOD COUNT 4.91 M/uL (4.2-5.4); WHITE BLOOD COUNT 7.19 K/uL (4.8-10.8)
[2017-05-03 06:11] LABS: PROTHROMBIN TIME (PATIENT) 10.4 SECONDS (9.0-12.0)
[2017-05-03 06:40] LABS: BUN/CREATININE RATIO 15.4 (10-20); CALCIUM 8.8 mg/dl (8.5-10.1); CREATININE 0.75 mg/dl (0.60-1.20); POTASSIUM 3.3 mmol/L (3.5-5.1)
[2017-05-03] MEDS: DEXTROSE 5% IV SCH ×3 (08:30→23:32)
[2017-05-03] MEDS: CLINDAMYCIN IV SCH ×3 (08:30→23:32)
[2017-05-03] MEDS: FUROSEMIDE 40 MG TAB PO SCH ×2 (08:31→15:34)
[2017-05-03] MEDS: ALBUTEROL HFA 8 GM INHALER INH SCH (08:31)
[2017-05-03] MEDS: POTASSIUM CHLORIDE 20 MEQ TABCR PO SCH (08:31)
[2017-05-03] MEDS: CLOPIDOGREL BISULFATE 75 MG TAB PO SCH (08:31)
[2017-05-03] MEDS: ALLOPURINOL 300 MG TAB PO SCH (08:31)
[2017-05-03] MEDS: VERAPAMIL HCL 240 MG TABCR PO SCH ×2 (08:31→20:56)
[2017-05-03] MEDS: TOLTERODINE TARTRATE LA 2 MG CAPCR PO SCH (08:32)
[2017-05-03] MEDS: SPIRONOLACTONE 25 MG TAB PO SCH (08:32)
[2017-05-03] MEDS: NICOTINE 21 MG/24 HR TDSY TD SCH (08:33)
[2017-05-03] MEDS ORDERED: POTASSIUM CITRATE 10 MEQ TAB PO ONE (12:00)
[2017-05-03] MEDS: CEFTRIAXONE SOD INJ 1 GM in DEXTROSE 5% ADD-VANTAGE 50ML 50 ML IV SCH (20:56)
[2017-05-04] VITALS (7 sets, daily range): BP systolic 132–168; BP diastolic 71–86; PULSE 66–80; TEMP 36.4–36.9; O2SAT 91–95
[2017-05-04] MEDS: HEPARIN SOD 5000 UNIT/0.5 ML CARP SQ SCH ×3 (06:09→20:04)
[2017-05-04 06:34] LABS: BASO % 0.9 %; BASO ABS # 0.05 K/uL (0-0.2); COMPLETE YES; EOS % 3.3 %; HEMATOCRIT 42.8 % (37-47); IG% 0.3 %; LYMPH % 32.2 %; LYMPH ABS # 1.87 K/uL (1.2-3.4); MEAN CELL VOLUME 91.6 fL (80-100); MEAN CORPUSCULAR HEMOGLOBIN 30.4 pg (25-34); MEAN CORPUSCULAR HGB CONC 33.2 g/dl (32-36); MONO % 11.5 %; NEUT % 51.8 %; PLATELET COUNT 187 K/uL (130-400); RED BLOOD COUNT 4.67 M/uL (4.2-5.4); WHITE BLOOD COUNT 5.81 K/uL (4.8-10.8)
[2017-05-04 06:41] LABS: PROTHROMBIN TIME (PATIENT) 10.2 SECONDS (9.0-12.0)
[2017-05-04 07:03] LABS: ESTIMATED AVERAGE GLUCOSE 111 mg/dl; HA1C FLAG Normal (Normal)
[2017-05-04 07:06] LABS: BUN/CREATININE RATIO 17.6 (10-20); CALCIUM 9.5 mg/dl (8.5-10.1); CREATININE 0.75 mg/dl (0.60-1.20); POTASSIUM 3.4 mmol/L (3.5-5.1)
[2017-05-04] MEDS: CLINDAMYCIN IV SCH (07:53)
[2017-05-04] MEDS: DEXTROSE 5% IV SCH (07:53)
[2017-05-04] MEDS: CLOPIDOGREL BISULFATE 75 MG TAB PO SCH (07:54)
[2017-05-04] MEDS: VERAPAMIL HCL 240 MG TABCR PO SCH ×2 (07:54→19:59)
[2017-05-04] MEDS: ALBUTEROL HFA 8 GM INHALER INH SCH (07:54)
[2017-05-04] MEDS: FUROSEMIDE 40 MG TAB PO SCH ×2 (07:54→16:52)
[2017-05-04] MEDS: ALLOPURINOL 300 MG TAB PO SCH (07:54)
[2017-05-04] MEDS: POTASSIUM CHLORIDE 20 MEQ TABCR PO SCH (07:54)
[2017-05-04] MEDS: NICOTINE 21 MG/24 HR TDSY TD SCH (07:55)
[2017-05-04] MEDS: SPIRONOLACTONE 25 MG TAB PO SCH (07:55)
[2017-05-04] MEDS: TOLTERODINE TARTRATE LA 2 MG CAPCR PO SCH (07:55)
--- NOTE | 2017-05-04 08:18 | Clinical Documentation Query ---
CLINICAL DOCUMENTATION QUERY H&P stated CVA, but since that time its' documentation has fallen off the record. Has stroke been ruled out? In your clinical opinion is this patient being managed for: ( ) Suspected stroke ( ) Stroke ruled out Please clarify and document your clinical opinion in the progress notes and discharge summary. Terms such as "probable", "suspected", "likely", "questionable", "possible", or "still to be ruled out" are acceptable. IF IN AGREEMENT, YOU MUST DOCUMENT ABOVE DIAGNOSTIC STATEMENT IN DAILY PROGRESS NOTES AND DISCHARGE SUMMARY. This document is not part of the patient's record. Thank You, Everardo Sales, RN [phone]
[2017-05-04] MEDS ORDERED: POTASSIUM CHLORIDE 20 MEQ TABCR PO ONE (11:00)
[2017-05-04] MEDS: CLINDAMYCIN HCL 150 MG CAP PO SCH ×2 (12:21→16:52)
--- NOTE | 2017-05-04 18:14 | Family Medicine Progress Note ---
Progress Note Date of Service May 04, 2017. Subjective Pt evaluation today including: conversation w/ patient, physical exam, chart review, lab review, review of inpatient medication list Pain: none Voiding: no voiding problems Patient eating breakfast at bedside chair this AM, no complaints, feels she is getting stronger but still notices weakness discrepancy from right vs. left. Eager to go to rehab. Constitutional: + weakness, No fever, No chills, No sweats Eyes: No worsening of vision, No diplopia ENT: No sore throat, No dental problems, No trouble swallowing Respiratory: + dyspnea on exertion, No cough, No sputum, No wheezing, No shortness of breath Cardiovascular: No chest pain, No edema, No claudication Abdomen: No pain, No nausea, No vomiting, No diarrhea, No constipation, No GI bleeding Female : No dysuria Neurologic: + weakness Skin: No rash, No new/changing skin lesions Medications Current Inpatient Medications Medications (Trade) Dose Ordered Sig/Klaudia Route Start Time Stop Time Status Last Admin Dose Admin Miscellaneous Information (Pharmacist Discharge Med Rec Consult) 1 ea UD PRN N/A 05/01/17 20:15 05/31/17 20:14 Heparin Sodium (Porcine) (Heparin Sq 5000 Unit/0.5ml) 5,000 unit Q8 SQ 05/01/17 22:00 05/31/17 21:59 05/04/17 13:11 5,000 UNIT Acetaminophen (Tylenol Tab) 650 mg Q4H PRN PO 05/01/17 20:30 05/31/17 20:29 Al Hydrox/Mg Hydrox/Simethicone (Maalox Max Susp) 15 ml Q4H PRN PO 05/01/17 20:30 05/31/17 20:29 Magnesium Hydroxide (Milk Of Magnesia Susp) 30 ml Q12H PRN PO 05/01/17 20:30 05/31/17 20:29 Ondansetron HCl (Zofran Inj) 4 mg Q6H PRN IV 05/01/17 20:30 05/31/17 20:29 Nitroglycerin (Nitrostat Tab) 0.4 mg UD PRN SL 05/01/17 20:30 05/31/17 20:29 Polyethylene (Miralax Powder Packet) 17 gm DAILY PRN PO 05/01/17 20:30 05/31/17 20:29 Albuterol (Ventolin Hfa Inhaler) 2 puffs DAILY INH 05/02/17 09:00 06/01/17 08:59 05/04/17 07:54 2 PUFFS Allopurinol (Zyloprim Tab) 300 mg QAM PO 05/02/17 09:00 06/01/17 08:59 05/04/17 07:54 300 MG Furosemide (Lasix Tab) 40 mg BID17 PO 05/01/17 21:00 05/31/17 20:59 05/04/17 16:52 40 MG Nicotine (Nicoderm Cq 21MG Patch) 1 patch DAILY TD 05/02/17 09:00 06/01/17 08:59 05/04/17 07:55 1 PATCH Spironolactone (Aldactone Tab) 25 mg DAILY PO 05/02/17 09:00 06/01/17 08:59 05/04/17 07:55 25 MG Tolterodine Tartrate (Detrol LA Cap) 2 mg DAILY PO 05/02/17 09:00 06/01/17 08:59 05/04/17 07:55 2 MG Verapamil HCl (Calan-Sr Tab) 240 mg BID PO 05/01/17 21:00 05/31/17 20:59 05/04/17 07:54 240 MG Potassium Chloride (Klor-Con Tab) 20 meq QAM PO 05/02/17 09:00 06/01/17 08:59 05/04/17 07:54 20 MEQ Ioversol (Optiray 320) 100 ml UD PRN IV 05/01/17 23:00 05/05/17 22:59 Clopidogrel Bisulfate (plAVix TAB) 75 mg QAM PO 05/03/17 09:00 06/02/17 08:59 05/04/17 07:54 75 MG Clindamycin HCl (Cleocin Cap) 300 mg Q6 PO 05/04/17 12:00 05/09/17 23:59 05/04/17 16:52 300 MG Objective Vital Signs Date Time Temp Pulse Resp B/P (MAP) Pulse Ox O2 Delivery O2 Flow Rate FiO2 05/04/17 14:02 93 Room Air 05/04/17 13:47 36.8 76 20 132/71 (91) 93 Nasal Cannula 2.0 05/04/17 13:24 36.9 76 20 95 2.0 05/04/17 12:00 Nasal Cannula 2.0 05/04/17 11:16 36.9 76 20 150/84 (106) 95 2.0 05/04/17 08:00 Nasal Cannula 2.0 05/04/17 07:24 36.6 66 20 168/86 (113) 91 Room Air 05/04/17 04:03 Nasal Cannula 2.0 05/04/17 03:03 36.4 74 17 148/75 (99) 92 Nasal Cannula 2.0 05/04/17 00:00 Nasal Cannula 2.0 05/03/17 23:31 36.5 86 18 165/84 (111) 93 Nasal Cannula 2.0 05/03/17 20:03 Nasal Cannula 2.0 05/03/17 19:42 36.9 64 18 159/96 (117) 95 Nasal Cannula 2.0 Physical Exam General Appearance: WD/WN, no apparent distress, + obese Eyes: normal inspection, PERRL, EOMI ENT: hearing grossly normal, pharynx normal Neck: no JVD Respiratory/Chest: lungs clear, normal breath sounds, no respiratory distress, no accessory muscle use Cardiovascular: regular rate, rhythm, no edema, no gallop, no murmur Abdomen: normal bowel sounds, non tender, soft Extremities: normal range of motion, no pedal edema, no calf tenderness Neurologic/Psychiatric: alert, normal mood/affect, oriented x 3, + pertinent finding (Right side weakness of 4-5 upper extremety vs left side 5/5) Skin: normal color, warm/dry Laboratory Results 05/04/17 06:00 Red Blood Count 4.67, Mean Corpuscular Volume 91.6, Mean Corpuscular Hemoglobin 30.4, Mean Corpuscular Hemoglobin Concent 33.2, Mean Platelet Volume 11.0, Neutrophils (%) (Auto) 51.8, Lymphocytes (%) (Auto) 32.2, Monocytes (%) (Auto) 11.5, Eosinophils (%) (Auto) 3.3, Basophils (%) (Auto) 0.9, Neutrophils # (Auto ) 3.01, Lymphocytes # (Auto) 1.87, Monocytes # (Auto) 0.67, Eosinophils # (Auto ) 0.19, Basophils # (Auto) 0.05 05/04/17 06:00 Test 05/04/17 06:00 White Blood Count 5.81 K/uL (4.8-10.8) Red Blood Count 4.67 M/uL (4.2-5.4) Hemoglobin 14.2 g/dL (12.0-16.0) Hematocrit 42.8 % (37-47) Mean Corpuscular Volume 91.6 fL (80-100) Mean Corpuscular Hemoglobin 30.4 pg (25-34) Mean Corpuscular Hemoglobin Concent 33.2 g/dl (32-36) Platelet Count 187 K/uL (130-400) Mean Platelet Volume 11.0 fL (7.4-10.4) Neutrophils (%) (Auto) 51.8 % Lymphocytes (%) (Auto) 32.2 % Monocytes (%) (Auto) 11.5 % Eosinophils (%) (Auto) 3.3 % Basophils (%) (Auto) 0.9 % Neutrophils # (Auto) 3.01 K/uL (1.4-6.5) Lymphocytes # (Auto) 1.87 K/uL (1.2-3.4) Monocytes # (Auto) 0.67 K/uL (0.11-0.59) Eosinophils # (Auto) 0.19 K/uL (0-0.5) Basophils # (Auto) 0.05 K/uL (0-0.2) RDW Standard Deviation 47.4 fL (36.4-46.3) RDW Coefficient of Variation 14.1 % (11.5-14.5) Immature Granulocyte % (Auto) 0.3 % Immature Granulocyte # (Auto) 0.02 K/uL (0.00-0.02) Prothrombin Time 10.2 SECONDS (9.0-12.0) Prothromb Time International Ratio 1.0 (0.9-1.1) Anion Gap 8.0 mmol/L (3-11) Est Creatinine Clear Calc Drug Dose 86.1 ml/min Estimated GFR () 94.9 Estimated GFR (Non- 81.9 BUN/Creatinine Ratio 17.6 (10-20) Calcium Level 9.5 mg/dl (8.5-10.1) Magnesium Level 2.4 mg/dl (1.8-2.4) Assessment and Plan 66 yo female c/o right arm and leg weakness noted on Tues 19Sep, ? similar sx but less pronounced during prior week. Right-sided weakness and slurred speech: Left hemispheric lesion/cervical etiology. Not a tPA candidate due to sx duration. Pt says her slurred speech is new as of 19Sep but thinks it's due to a dry mouth, doesn't seem to concern her. Pt agreed to CT head on initial eval but has declined MRA head and neck, and MRI brain, stating she cannot remain lying down for that long. - Started on plavix. - Pt has allergy to statins. Stopped home ASA 81. EKG 22Sep NSR 88. - [id number] CT head noted nothing acute but old lacunar infarct in right basal ganglia. - 23Sep Neuro consult: Re-recommended CTA head/neck. Switch ASA to plavix. F/ u PT/OT/speech for d/c plans. BP parameter recs. General stroke risk factor modification. F/u in their clinic in one month. - 23Sep CTA head and neck showed no significant arterial stenosis and mild focal stenosis within the intracranial portion of the distal right vertebral artery. - 23Sep Echocardiogram noted normal LV size, hyperdynamic systolic function, EF 65-70%, no regional wall motion abnormalities, mild LVH, left atrium moderately dilated. - Started neuro checks and aspiration precautions - 23Sep Speech eval: Regular diet with thin liquids, aspiration precautions, no additional speech therapy necessary. Pneumonia: Denies known recent illness, fevers, cough, N/V. On admit afebrile, clear lungs, no leukocytosis on labs. - 22Sep pCXR one view noted pulmonary vascular congestion and mild superimposed infiltrate right base. - Question if source is aspiration. Reportedly pt failed dysphagia screen in the ED, then got a moisturized swab of the mouth and passed her dysphagia screen on the floor. - 23Sep started on clindamycin 900 mg IV q8h; converted to oral today: 300 qid PO; DCd ceftriaxone. - wean off of oxygen (88%) - Two step and transfer to med/surg - possible DC tomorrow if she can tolerate RA Hypokalemia: K 3.2 on admit. Replaced via IV and PO. - 3.4 today; replenished with 40 mEq KCl COPD: Reported hx smoking x 50 years, perhaps 1/2 to 1 ppd. - On home albuterol. - Nicotine 21mg TD patch. HTN: - On home Verapamil SR 240 mg BID, Lasix 40 mg BID, and Spironolactone 25mg daily. - Elevated on admit, given metoprolol 5 mg IV. - Per neuro: goal for inpatient of 150-175 systolic Urinary incontinence: Continue home toleterodine as inpt. Prediabetes: Per report. Glc so far were 94 & 81. -HbA1c 5.5%, compared to 5.4 % in february 2017 and one level of 7.8 as outpatient, date unknown. -patient reports she had tried metformin but did not like GI side effects; would like to try management with diet alone - try diet for 6 months as outpatient but then recommend follow up as outpatient with possible medication start. Disposition: Pending. Working with case management for further inpt rehab at time of d/c. - Uses a motorized scooter to get around at baseline. - 23Sep OT: Recommended further inpt rehab. - 24Sep PT: Could consider outpt rehab. DVT prophy: Heparin q8h. Code status: Full code Dispo: telemetry, DC soon. Resident Tracking Resident Involvement: Resident Care Provided Care Provided: Adult Hospital Medicine
[2017-05-05] MEDS: CLINDAMYCIN HCL 150 MG CAP PO SCH ×4 (00:05→18:19)
--- NOTE | 2017-05-05 04:46 | Clinical Documentation Query ---
CLINICAL DOCUMENTATION QUERY H&P stated CVA, but since that time its' documentation has fallen off the record. Has stroke been ruled out? Currently left hemispheric lesion/cervical etiology are being documented. In your clinical opinion is this patient being managed for: ( x ) Suspected left hemisphere stroke vs. cervical stenosis ( ) Stroke ruled out Please clarify and document your clinical opinion in the progress notes and discharge summary. Terms such as "probable", "suspected", "likely", "questionable", "possible", or "still to be ruled out" are acceptable. IF IN AGREEMENT, YOU MUST DOCUMENT ABOVE DIAGNOSTIC STATEMENT IN DAILY PROGRESS NOTES AND DISCHARGE SUMMARY. This document is not part of the patient's record. Thank You, Everardo Sales, TRINY [phone]
[2017-05-05] MEDS: HEPARIN SOD 5000 UNIT/0.5 ML CARP SQ SCH ×3 (05:45→22:27)
[2017-05-05 08:02] VITALS: BP 178/84; PULSE 75; TEMP 36.6; O2SAT 97
[2017-05-05] MEDS: SPIRONOLACTONE 25 MG TAB PO SCH (09:00)
[2017-05-05] MEDS: TOLTERODINE TARTRATE LA 2 MG CAPCR PO SCH (10:30)
[2017-05-05] MEDS: CLOPIDOGREL BISULFATE 75 MG TAB PO SCH (10:31)
[2017-05-05] MEDS: POTASSIUM CHLORIDE 20 MEQ TABCR PO SCH (10:31)
[2017-05-05] MEDS: FUROSEMIDE 40 MG TAB PO SCH ×2 (10:31→18:19)
[2017-05-05] MEDS: VERAPAMIL HCL 240 MG TABCR PO SCH ×2 (10:31→20:41)
[2017-05-05] MEDS: ALLOPURINOL 300 MG TAB PO SCH (10:31)
[2017-05-05] MEDS: NICOTINE 21 MG/24 HR TDSY TD SCH (10:34)
[2017-05-05] MEDS: ALBUTEROL HFA 8 GM INHALER INH SCH (10:35)
[2017-05-05 15:26] VITALS: BP 143/80; PULSE 71; TEMP 36.5; O2SAT 97
--- NOTE | 2017-05-05 17:06 | Family Medicine Progress Note ---
Progress Note Date of Service May 05, 2017. Subjective Pt evaluation today including: conversation w/ patient, conversation w/ family , physical exam, chart review, lab review, review of inpatient medication list Pain: None PO Intake: Tolerating well Voiding: no voiding problems Patient sitting at bedside, just finished breakfast, no complaints today. Reports she has been able to use a fork steadily with her right hand and is happy with her strength improvement Constitutional: No fever, No chills, No sweats, No fatigue Eyes: No worsening of vision, No eye pain, No diplopia ENT: No hearing loss, No sore throat, No tinnitus, No trouble swallowing Respiratory: + cough, + sputum, + dyspnea on exertion, No hemoptysis Cardiovascular: No chest pain, No edema Abdomen: No pain, No nausea, No diarrhea, No constipation Female : + incontinence Neurologic: No weakness, No numbness/tingling, No vertigo Psychiatric: No depression symptoms Heme: No abnormal bleeding/bruising Medications Current Inpatient Medications Medications (Trade) Dose Ordered Sig/Klaudia Route Start Time Stop Time Status Last Admin Dose Admin Miscellaneous Information (Pharmacist Discharge Med Rec Consult) 1 ea UD PRN N/A 05/01/17 20:15 05/31/17 20:14 Heparin Sodium (Porcine) (Heparin Sq 5000 Unit/0.5ml) 5,000 unit Q8 SQ 05/01/17 22:00 05/31/17 21:59 05/05/17 14:51 5,000 UNIT Acetaminophen (Tylenol Tab) 650 mg Q4H PRN PO 05/01/17 20:30 05/31/17 20:29 05/04/17 20:08 650 MG Al Hydrox/Mg Hydrox/Simethicone (Maalox Max Susp) 15 ml Q4H PRN PO 05/01/17 20:30 05/31/17 20:29 Magnesium Hydroxide (Milk Of Magnesia Susp) 30 ml Q12H PRN PO 05/01/17 20:30 05/31/17 20:29 Ondansetron HCl (Zofran Inj) 4 mg Q6H PRN IV 05/01/17 20:30 05/31/17 20:29 Nitroglycerin (Nitrostat Tab) 0.4 mg UD PRN SL 05/01/17 20:30 05/31/17 20:29 Polyethylene (Miralax Powder Packet) 17 gm DAILY PRN PO 05/01/17 20:30 05/31/17 20:29 Albuterol (Ventolin Hfa Inhaler) 2 puffs DAILY INH 05/02/17 09:00 06/01/17 08:59 05/05/17 10:35 2 PUFFS Allopurinol (Zyloprim Tab) 300 mg QAM PO 05/02/17 09:00 06/01/17 08:59 05/05/17 10:31 300 MG Furosemide (Lasix Tab) 40 mg BID17 PO 05/01/17 21:00 05/31/17 20:59 05/05/17 10:31 40 MG Nicotine (Nicoderm Cq 21MG Patch) 1 patch DAILY TD 05/02/17 09:00 06/01/17 08:59 05/05/17 10:34 1 PATCH Spironolactone (Aldactone Tab) 25 mg DAILY PO 05/02/17 09:00 06/01/17 08:59 05/04/17 07:55 25 MG Tolterodine Tartrate (Detrol LA Cap) 2 mg DAILY PO 05/02/17 09:00 06/01/17 08:59 05/05/17 10:30 2 MG Verapamil HCl (Calan-Sr Tab) 240 mg BID PO 05/01/17 21:00 05/31/17 20:59 05/05/17 10:31 240 MG Potassium Chloride (Klor-Con Tab) 20 meq QAM PO 05/02/17 09:00 06/01/17 08:59 05/05/17 10:31 20 MEQ Ioversol (Optiray 320) 100 ml UD PRN IV 05/01/17 23:00 05/05/17 22:59 Clopidogrel Bisulfate (plAVix TAB) 75 mg QAM PO 05/03/17 09:00 06/02/17 08:59 05/05/17 10:31 75 MG Clindamycin HCl (Cleocin Cap) 300 mg Q6 PO 05/04/17 12:00 05/09/17 23:59 05/05/17 12:09 300 MG Objective Vital Signs Date Time Temp Pulse Resp B/P (MAP) Pulse Ox O2 Delivery O2 Flow Rate FiO2 05/05/17 15:26 36.5 71 18 143/80 (101) 97 2.0 05/05/17 08:02 36.6 75 18 178/84 (115) 97 2.0 05/05/17 08:00 Room Air 05/04/17 23:45 36.9 80 16 154/80 (104) 91 Room Air 05/04/17 21:00 Room Air Physical Exam General Appearance: WD/WN, no apparent distress, + obese Eyes: normal inspection, PERRL, EOMI ENT: hearing grossly normal, pharynx normal Neck: supple, no JVD, trachea midline Respiratory/Chest: chest non-tender, lungs clear, normal breath sounds, no respiratory distress, no accessory muscle use Cardiovascular: regular rate, rhythm, no edema, no JVD, no murmur Abdomen: normal bowel sounds, non tender, soft Extremities: no pedal edema, no calf tenderness Neurologic/Psychiatric: no motor/sensory deficits (strength in right sided limbs 5-/5), alert, normal mood/affect, oriented x 3 Skin: normal color, warm/dry Laboratory Results Last Resulted 05/04/17 06:00 Red Blood Count 4.67, Mean Corpuscular Volume 91.6, Mean Corpuscular Hemoglobin 30.4, Mean Corpuscular Hemoglobin Concent 33.2, Mean Platelet Volume 11.0, Neutrophils (%) (Auto) 51.8, Lymphocytes (%) (Auto) 32.2, Monocytes (%) (Auto) 11.5, Eosinophils (%) (Auto) 3.3, Basophils (%) (Auto) 0.9, Neutrophils # (Auto ) 3.01, Lymphocytes # (Auto) 1.87, Monocytes # (Auto) 0.67, Eosinophils # (Auto ) 0.19, Basophils # (Auto) 0.05 Last Resulted 05/04/17 06:00 Assessment and Plan 66 yo female c/o right arm and leg weakness noted on Tues 19Sep, ? similar sx but less pronounced during prior week. ?TIA/Rx for CVA vs Cervical Stenosis/Right-sided weakness and slurred speech: Left hemispheric lesion/cervical etiology. Not a tPA candidate due to sx duration. - Pt declines MRA head and neck, and MRI brain, stating she cannot remain lying down for that long. CT: old lacunar infarct in right basal ganglia. - Started on plavix (switched from ASA) - Pt has allergy to statins. - Stopped home ASA 81. - Per Neuro: F/u PT/OT for d/c plans. BP parameter recs. General stroke risk factor modification. F/u in their clinic in one month. - CTA head and neck showed no significant arterial stenosis and mild focal stenosis within the intracranial portion of the distal right vertebral artery. - Pt has been accepted at [facility], awaiting bed Pneumonia: Denies known recent illness, fevers, cough, N/V. Afebrile, clear lungs, no leukocytosis on labs. - 22Sep pCXR one view noted pulmonary vascular congestion and mild superimposed infiltrate right base. - Question if source is aspiration. - Day 4 (of 7) of Clindamycin 300 qid PO - Repeat CXR in 2-3 days at [facility] - wean off of oxygen (88%) - Two step not required prior to dc - possible DC tomorrow if bed available at [facility]; pt has been accepted. Hypokalemia: - 3.4 Thursday; replenished with 40 mEq KCl - Recheck BMP Thursday prior to DC COPD: Reported hx smoking x 50 years, perhaps 1/2 to 1 ppd. - On home albuterol. - Nicotine 21mg TD patch. - Patient reports doing well off cigarettes, recognizes she needs to get away from addiction HTN: - On home Verapamil SR 240 mg BID, Lasix 40 mg BID, and Spironolactone 25mg daily. - Elevated on admit, given metoprolol 5 mg IV. - Per neuro: goal for inpatient of 150-175 systolic Urinary incontinence: Continue home tolterodine as inpt. Prediabetes: Per report. Glc so far were 94 & 81. -HbA1c 5.5%, compared to 5.4 % in february 2017 and one level of 7.8 as outpatient, date unknown. -patient reports she had tried metformin but did not like GI side effects; would like to try management with diet alone -Continue diet and recommend follow up as outpatient Disposition: [facility] as soon as bed available - Uses a motorized scooter to get around at baseline. DVT prophylaxis: Heparin Code: full code Resident Tracking Resident Involvement: Resident Care Provided Care Provided: Adult Hospital Medicine
[2017-05-05 23:45] VITALS: BP 157/85; PULSE 72; TEMP 36.4; O2SAT 95
[2017-05-06] MEDS: CLINDAMYCIN HCL 150 MG CAP PO SCH ×3 (05:36→11:54)
[2017-05-06] MEDS: HEPARIN SOD 5000 UNIT/0.5 ML CARP SQ SCH ×2 (05:41→14:53)
[2017-05-06 07:38] VITALS: BP 173/84; PULSE 63; TEMP 36.5; O2SAT 97
[2017-05-06 08:27] LABS: BUN/CREATININE RATIO 20.9 (10-20); CALCIUM 9.3 mg/dl (8.5-10.1); CREATININE 0.69 mg/dl (0.60-1.20); POTASSIUM 3.4 mmol/L (3.5-5.1)
[2017-05-06] MEDS: SPIRONOLACTONE 25 MG TAB PO SCH (08:49)
[2017-05-06] MEDS: VERAPAMIL HCL 240 MG TABCR PO SCH (08:49)
[2017-05-06] MEDS: TOLTERODINE TARTRATE LA 2 MG CAPCR PO SCH (08:49)
[2017-05-06] MEDS: CLOPIDOGREL BISULFATE 75 MG TAB PO SCH (08:49)
[2017-05-06] MEDS: POTASSIUM CHLORIDE 20 MEQ TABCR PO SCH (08:50)
[2017-05-06] MEDS: ALLOPURINOL 300 MG TAB PO SCH (08:50)
[2017-05-06] MEDS: FUROSEMIDE 40 MG TAB PO SCH (08:50)
[2017-05-06] MEDS: NICOTINE 21 MG/24 HR TDSY TD SCH (08:51)
[2017-05-06] MEDS: ALBUTEROL HFA 8 GM INHALER INH SCH (08:53)
[2017-05-06] MEDS ORDERED: EZETIMIBE 10MG TAB PO ONE (11:30)
[2017-05-06 11:57] VITALS: O2SAT 92
[2017-05-06] MEDS ORDERED: CLC150 PO (12:53)
[2017-05-06] MEDS ORDERED: NTRSLP4 SL (12:53)
[2017-05-06] MEDS ORDERED: ZTA10 PO (12:53)
[2017-05-06] MEDS ORDERED: PLV75 PO (12:53)
--- NOTE | 2017-05-06 13:22 | Discharge Instructions ---
Discharge Instructions Date of Service May 06, 2017. Admission Reason for Admission: Stroke Discharge Discharge Diagnosis / Problem: CVA vs. Cervical Stenosis Discharge Goals Goal(s): Improve function, Prevent Disease Progression Activity Recommendations Activity Limitations: per Instructions/Follow-up section . Instructions / Follow-Up Instructions / Follow-Up Risk Factors for Stroke: You can reduce your chances of stroke by working with your medical provider to adopt a healthy lifestyle. Some specific ways to lower your chance of stroke are: * If you are a smoker, now is the time to stop smoking cigarettes * If you are diabetic, improve the control of your blood sugars * Avoid excessive amounts of alcohol * Control high blood pressure * Lose weight if you are overweight * Be sure to lead an active lifestyle * Eat a healthy diet low in salt, cholesterol and fat You should know about other risk factors for stroke that you are unable to control. These include: * Age 55 years or older * Male gender * Certain racial groups: , or / * Family History of Stroke, Mini stroke or Heart Attack * Sickle Cell Disease Follow Up: It is important for you to keep your follow up appointments with your medical provider. Will need Follow up Chest xray in 2-3 days Will need follow up K+ check in 2 days Needs 2 more days of clindamycin treatment, as prescribed Current Hospital Diet Patient's current hospital diet: AHA Diet (Heart Healthy) Discharge Diet Recommended Diet: AHA Diet (Heart Healthy) Pending Studies Studies pending at discharge: no Laboratory Results Hemoglobin A1c Test 05/03/17 05:16 Range/Units Estimated Average Glucose 111 mg/dl Hemoglobin A1c 5.5 4.5-5.6 % Lipid Panel Test 05/02/17 05:14 Range/Units Triglycerides Level 206 H 0-150 mg/dl Cholesterol Level 228 H 0-200 mg/dl HDL Cholesterol 47 mg/dl Cholesterol/HDL Ratio 4.9 LDL Cholesterol, Calculated 140 mg/dl Medical Emergencies . Who to Call and When: Medical Emergencies: Call 911 immediately if you experience any of the following warning signs and symptoms of Stroke: * Sudden numbness or weakness of the face, arm or leg, especially on one side of the body * Sudden confusion, trouble speaking or understanding * Sudden trouble seeing in one or both eyes * Sudden trouble walking, dizziness, loss of balance or coordination * Sudden severe headache with no cause Do not delay calling 911 if you experience any warning signs or symptoms of a stroke. Delay in seeking medical attention may affect what treatments can be given to you. . Non-Emergent Contact Non-Emergency issues call your: Primary Care Provider . . "Provider Documentation" section prepared by Jessica Sal. . Stroke Core Measures Reason no t-PA for Stroke: Treatment not indicated (due to symptom duration) Reason no antithrom by day 2: Treatment provided - N/A Reason no antithrom at D/C: Treatment provided - N/A Reason no statin at D/C: Refusal of tx by patient Reason no anticoag w/a fib: Treatment not indicated VTE Core Measure Inpt VTE Proph given/why not?: Unfractionated heparin SQ, SCD's
[2017-05-06 15:20] VITALS: BP 163/82; PULSE 72; TEMP 36.8; O2SAT 94
--- NOTE | 2017-05-06 16:40 | Discharge Summary ---
Discharge Summary Date of Service May 06, 2017. Discharge Summary Admission Date: May 01, 2017 at 20:22 Discharge Date: May 06, 2017 Discharge Disposition: halfway facility Principal Diagnosis: Stroke Problems/Secondary Diagnoses: (1) HTN (hypertension) Status: Chronic Pneumonia, hypokalemia, COPD, Urinary incontinence Immunizations: Have You Had Influenza Vaccine: Unknown History of Tetanus Vaccine?: Unknown History of Pneumococcal: Unknown History of Hepatitis B Vaccine: Unknown Consultations: Neurology Medication Reconciliation New Medications: Clindamycin HCl (Clindamycin HCl) 150 Mg Cap 300 MG PO Q6 for 2 Days, #16 CAP Clopidogrel Bisulfate (Clopidogrel) 75 Mg Tab 75 MG PO QAM for 30 Days, #30 TAB Ezetimibe (Zetia) 10 Mg Tab 10 MG PO QAM for 30 Days, #30 TAB Nitroglycerin (Nitrostat) 0.4 Mg/1 Tab Subl 0.4 MG SL UD PRN for Chest Pain for 30 Days, #30 Continued Medications: Acetaminophen (Tylenol) 500 Mg Tab 2 TAB PO QID Albuterol Hfa (Ventolin Hfa) 200 Puffs/48199 Mcg Aers 2 PUFFS INH DAILY Allopurinol (Allopurinol) 300 Mg Tab 300 MG PO QAM Aspirin (Aspir-81) 81 Mg Tab 81 MG PO HS Diphenhydramine Hcl (Allergy) 25 Mg Cap 1 CAP PO BID Furosemide (Lasix) 40 Mg Tab 40 MG PO BID, TAB Multivitamin (Multivitamin) Tab 1 TAB PO QAM, TAB Nicotine (Nicoderm Cq 21MG Patch) 21 Mg/24 Hr Dis 1 PATCH TD DAILY, PATCH Potassium Chloride (Potassium Chloride Er) 10 Meq Cap 2 TAB PO BID Pseudoephedrine (Sudafed) 30 Mg Tab 30 MG PO QID, TAB Silver Sulfadiazine (Silvadene) 1 % Cre 1 APPLN TOP DAILY PRN for PRN Spironolactone (Spironolactone) 25 Mg Tab 1 TAB PO DAILY Tolterodine Tartrate (Detrol LA) 2 Mg Capcr Unknown Dose PO DAILY Verapamil Hcl (Calan Sr Ext Rel) 240 Mg Tabcr 240 MG PO BID, TAB Discharge Exam Review of Systems: Constitutional: + weakness, No fever, No chills, No sweats, No weight loss Eyes: No worsening of vision, No diplopia ENT: No hearing loss, No nasal symptoms, No sore throat, No trouble swallowing Respiratory: + cough, + sputum, + dyspnea on exertion, No wheezing Cardiovascular: + edema, No chest pain Abdomen: No pain, No nausea, No vomiting, No diarrhea, No constipation Genitourinary - Female: + urinary incontinence, No dysuria Neurologic: + weakness (but improving on right arms/legs), + numbness/ tingling (neuropathy in feet) Integumentary: No rash Physical Exam: General Appearance: WD/WN, no apparent distress, + obese Eyes: normal inspection, PERRL, EOMI ENT: normal ENT inspection, hearing grossly normal, pharynx normal Neck: supple, no JVD, trachea midline Respiratory/Chest: chest non-tender, lungs clear, normal breath sounds, no respiratory distress, no accessory muscle use Cardiovascular: regular rate, rhythm, no JVD, no murmur, normal peripheral pulses Abdomen / GI: normal bowel sounds, non tender, soft, no organomegaly Extremities: no calf tenderness, normal range of motion, + pedal edema 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 She says that she had laser surgery on her left eye 3 days prior, and after the procedure , her right arm and right leg went numb. The patient states that she thought it was a pinched nerve, but since then, she had weakness in her right arm and right leg. She says that nothing is numb currently, but the weakness has persisted. The patient adds that she was completely fine 3 mornings prior to the procedure. The patient denied any headaches, nausea, vomiting, or worsened shortness of breath. She noted no history of strokes. She smokes a half a pack of cigarettes per day Stroke symptoms: - Left hemispheric lesion/cervical etiology. Not a tPA candidate due to sx duration. - Pt declined MRA head and neck, and MRI brain, stating she cannot remain lying down for that long. CT showed old lacunar infarct in right basal ganglia. CTA head and neck showed no significant arterial stenosis and mild focal stenosis within the intracranial portion of the distal right vertebral artery. - Started on plavix, stopped home ASA 81. - Pt has allergy to statins but cannot recall what it was, just remembers she "got very sick" - Per Neuro: General stroke risk factor modification. - Started on Zetia 10mg daily. - Neuro: F/u in their clinic in one month. 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 Pneumonia: Denies known recent illness, fevers, cough, N/V. Afebrile, clear lungs, no leukocytosis - CXR noted pulmonary vascular congestion and mild superimposed infiltrate right base, question if source is aspiration. - Day 5 (of 7) of Clindamycin 300 qid PO to be completed while at [facility] - Repeat CXR in 2-3 days at [facility] Hypokalemia: - 3.4 Thursday; replenished with 40 mEq KCl, remains at 3.4 on discharge; patient had refused spironolactone yesterday due to what she states as "excessive loose stool" while on med. Recheck BMP in 2 days. COPD: Reported hx smoking x 50 years, perhaps 1/2 to 1 ppd. - On home albuterol. - Nicotine 21mg TD patch given while inpatient. - Patient reports doing well off cigarettes, recognizes she needs to get away from addiction HTN: - On home Verapamil SR 240 mg BID, Lasix 40 mg BID, and Spironolactone 25mg daily. She notes that she had been taking Spirolactone for a couple years, but was taken off of it 2 and a half years ago, but was put back on the Spirolactone a week and a half ago by Dr. Cason - Elevated BP on admit, given metoprolol 5 mg IV. - Per neuro: goal for inpatient of 150-175 systolic Urinary incontinence: Continue home tolterodine as inpt. Prediabetes: Per report. Glc so far were 94 & 81. -HbA1c 5.5%, compared to 5.4 % in february 2017 and one level of 7.8 as outpatient, date unknown. -patient reports she had tried metformin but did not like GI side effects; would like to try management with diet alone -Continue diet and recommend follow up as outpatient with PCP Total Time Spent: Less than 30 minutes This includes examination of the patient, discharge planning, medication reconciliation, and communication with other providers. Discharge Instructions Please refer to the electronic Patient Visit Report (Discharge Instructions) for additional information. Follow-Up Follow up with neurology in clinic in 1 month. Additional Copies To Franklin Alarcon M.D. Resident Tracking Resident Involvement: Resident Care Provided Care Provided: [facility] Medicine
[2017-05-07] MEDS ORDERED: EZETIMIBE 10MG TAB PO SCH (09:00)
== END 2017-05-06 16:31 | DRG 64 ==
LOC: C.EDB 16:19 → C.2T 20:22 → ENRESERV 20:32 → C.MS2W 05-04 13:42
PROVIDERS: ADMIT Hospitalist; ATTEND Hospitalist
DX: I63.9 Cerebral infarction, unspecified (principal); J18.9 Pneumonia, unspecified organism; R47.81 Slurred speech; R53.1 Weakness; E87.6 Hypokalemia; R73.03 Prediabetes; R68.2 Dry mouth, unspecified; I10 Essential (primary) hypertension; J44.9 Chronic obstructive pulmonary disease, unspecified; Z82.49 Family history of ischemic heart disease and other diseases of the circulatory system; Z80.1 Family history of malignant neoplasm of trachea, bronchus and lung; Z83.3 Family history of diabetes mellitus; Z79.82 Long term (current) use of aspirin; F17.210 Nicotine dependence, cigarettes, uncomplicated; Z86.73 Personal history of transient ischemic attack (TIA), and cerebral infarction without residual deficits; R32 Unspecified urinary incontinence; E78.5 Hyperlipidemia, unspecified

== ENCOUNTER → 2017-05-19 | Outpatient (CLI) | payer OTHER ==
[~2017-05-19] MED LIST changes: -BROM0.07 OPL; -CHOL1000 PO; +CLC150 PO; +DIPH-384 PO; +DTRSR/2 PO; -NEOM1OIN15 OPB; -NICO1DIS9 EXT; +NICO21DI35 TD; +NTRSLP4 SL; +PLV75 PO; +POTA1CAP2 PO; -POTA1TAB97 PO; -PRED1SUS3 OPL; -PRLSR20 PO; -QVRINH80 INH; +SPR25 PO; +ZTA10 PO; -[UNRECOGNIZED DRUG - CODE] PO
[2017-05-19 15:42] LABS: MANUAL MICROSCOPIC REQUIRED? NO; REVIEW REQ? NO; URINE APPEARANCE CLEAR (CLEAR); URINE BILIRUBIN NEG (NEG); URINE COLOR YELLOW; URINE NITRITE NEG (NEG); URINE PH 7.5 (4.5-7.5); URINE SPECIFIC GRAVITY 1.014 (1.000-1.030); UROBILINOGEN NEG (NEG); ZZUR CULT IF INDIC CLEAN CATCH NO
[2017-05-19 15:46] LABS: BLOOD UREA NITROGEN 14 mg/dl (7-18); BUN/CREATININE RATIO 17.8 (10-20); CALCIUM 9.7 mg/dl (8.5-10.1); CARBON DIOXIDE 29 mmol/L (21-32); CHLORIDE 103 mmol/L (98-107); CREATININE 0.79 mg/dl (0.60-1.20); GLUCOSE 86 mg/dl (70-99); MAGNESIUM 2.2 mg/dl (1.8-2.4); POTASSIUM 3.7 mmol/L (3.5-5.1); SODIUM 141 mmol/L (136-145)
[2017-05-19 15:47] LABS: PHOSPHORUS 3.6 mg/dl (2.5-4.9)
[2017-05-19 16:05] LABS: CREATININE, URINE < 13.0 mg/dl; URINE TOTAL PROTEIN < 5.0 mg/dl (0-11.9)
== END | disposition home or self-care (01) ==
LOC: C.LAB1850 14:22
PROVIDERS: ATTEND Internal Medicine Nephrology
DX: E87.6 Hypokalemia (principal)

== ENCOUNTER → 2017-12-08 | Outpatient (CLI) | payer OTHER ==
[2017-12-08 17:29] LABS: ALBUMIN 3.8 gm/dl (3.4-5.0); BLOOD UREA NITROGEN 13 mg/dl (7-18); CALCIUM 9.1 mg/dl (8.5-10.1); CARBON DIOXIDE 28 mmol/L (21-32); CREATININE 0.81 mg/dl (0.60-1.20); GLUCOSE 85 mg/dl (70-99); POTASSIUM 3.9 mmol/L (3.5-5.1); SODIUM 138 mmol/L (136-145)
[2017-12-08 17:30] LABS: PHOSPHORUS 3.4 mg/dl (2.5-4.9)
[2017-12-09 06:01] LABS: HEMOGLOBIN A1C 5.3 % (4.5-5.6)
== END | disposition home or self-care (01) ==
LOC: C.LABPVFM 14:24
PROVIDERS: ATTEND Nurse Practitioner
DX: I10 Essential (primary) hypertension (principal); E78.1 Pure hyperglyceridemia; E11.9 Type 2 diabetes mellitus without complications; E55.9 Vitamin D deficiency, unspecified

== ENCOUNTER 2024-04-18 14:19 | Observation (INO) ==
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
--- NOTE | 2024-04-18 16:05 | CT Scan Report ---
CT cervical spine wo con CLINICAL HISTORY: confirm c spine fx TECHNIQUE: Multidetector row helical CT of the cervical spine was performed without administration of intravenous contrast. Coronal and sagittal reformations were obtained. Automated dose lowering techn iques and/or adjustment according to patient size were utilized for this exam. Comparison: Comparison is made to CTA neck 05/02/2017 FINDINGS: There is a acute to subacute fracture of the odontoid process at the level of the base of the odontoi d. There is approximately 3 mm posterior displacement and mild angulation. Minimal comminution is see n. Degenerative changes are seen in the visualized spine. The alignment is normal. Soft tissues are u nremarkable. IMPRESSION: Type II fracture of the odontoid which is mildly displaced and comminuted. ACT 112: Negative or not required by law. Electronically signed by: Janak Hinojosa M.D. 04/18/2024 4:04 PM
--- NOTE | 2024-04-18 16:37 | XRay Report ---
XR chest 1V portable CLINICAL HISTORY: Chest pain, nonspecific TECHNIQUE: Single frontal radiograph of the chest was obtained. Comparison: Comparison is made to chest radiograph 02/29/2024 FINDINGS: No lines and tubes are seen. Cardiomegaly is noted. The aortic arch is calcified. Peribronchial thick ening is seen. No evidence of pleural effusion or pneumothorax. IMPRESSION: Peribronchial thickening is seen compatible with infectious/inflammatory airways disease or viral pne umonia. No tian consolidation is seen. ACT 112: Negative or not required by law. Electronically signed by: Janak Hinojosa M.D. 04/18/2024 4:36 PM
[2024-04-18 17:16] LABS: Hematocrit (blood only) 44.1 % (37.0-47.0); Hemoglobin 14.2 g/dl (12.0-16.0); Mean Corpuscular Hgb Conc 32.2 g/dL (32.0-36.0); Mean Platelet Volume 10.6 fL (9.4-12.4); Platelet Count 191 K/uL (130-400); RDW Coefficient of Variation 14.3 % (11.5-14.5); RDW Standard Deviation 48.8 fL (36.4-46.3); Red Blood Count 4.74 M/uL (4.20-5.40); White Blood Count 6.56 K/ul (4.8-10.8)
[2024-04-18 17:17] LABS: Partial Thromboplastin Ratio 0.9; Partial Thromboplastin Time 23 Seconds (21-31)
[2024-04-18 17:19] LABS: Anion Gap 7 (3-11); BUN Creatinine Ratio 31.3 (10-20); Basophils # (auto) 0.08 K/uL (0.00-0.20); Basophils % (auto) 1.2 %; Blood Urea Nitrogen 20 mg/dl (6-23); Calcium 10.2 mg/dl (8.6-10.3); Carbon Dioxide 31 mmol/L (21-32); Chloride 100 mmol/L (98-107); Creatinine Clr Calc Pharmacy 62.1 ml/min; Eosinophils # (auto) 0.37 K/uL (0.00-0.50); Eosinophils % (auto) 5.6 %; Est GFR (African American) 101.2 ml/min; Est GFR (Non-African American) 87.3 ml/min; Glucose 79 mg/dl (70-99(Fasting)); Immature Granulocytes # (auto) 0.03 K/uL (0.01-0.20); Immature Granulocytes % (auto) 0.5 %; Lipase 16 U/L (11-82); Lymphocytes # (auto) 1.69 K/uL (1.20-3.40); Lymphocytes % (auto) 25.8 %; Monocytes # (auto) 0.58 K/uL (0.11-0.59); Monocytes % (auto) 8.8 %; Neutrophils # (auto) 3.81 K/uL (1.40-6.50); Neutrophils % (auto) 58.1 %; Sodium 138 mmol/L (136-145)
[2024-04-18 17:21] LABS: Troponin I High Sensitivity 11.5 pg/ml (0-14)
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
[2024-04-18 21:31] LABS: Magnesium 1.9 mg/dl (1.7-2.4); Potassium 3.7 mmol/L (3.5-5.1)
[2024-04-18] MEDS ORDERED: ALBUTEROL HFA 8 GM INHALER INH PRN (23:06)
[2024-04-18] MEDS: ACETAMINOPHEN 325 MG TAB PO PRN (23:18)
[2024-04-18] MEDS ORDERED: LACTASE 3000 UNIT TAB PO PRN (23:21)
[2024-04-19] MEDS: LEVOTHYROXINE SODIUM 50 MCG TABLET PO SCH (06:28)
[2024-04-19 06:59] LABS: Basophils # (auto) 0.08 K/uL (0.00-0.20); Basophils % (auto) 1.3 %; Eosinophils % (auto) 6.3 %; Hematocrit (blood only) 41.5 % (37.0-47.0); Hemoglobin 13.5 g/dl (12.0-16.0); Immature Granulocytes # (auto) 0.01 K/uL (0.01-0.20); Immature Granulocytes % (auto) 0.2 %; Lymphocytes # (auto) 1.78 K/uL (1.20-3.40); Lymphocytes % (auto) 28.2 %; Mean Corpuscular Hemoglobin 30.1 pg (25.0-34.0); Mean Corpuscular Hgb Conc 32.5 g/dL (32.0-36.0); Mean Corpuscular Volume 92.6 fL (80.0-100.0); Mean Platelet Volume 10.4 fL (9.4-12.4); Monocytes # (auto) 0.62 K/uL (0.11-0.59); Monocytes % (auto) 9.8 %; Neutrophils # (auto) 3.42 K/uL (1.40-6.50); Neutrophils % (auto) 54.2 %; Platelet Count 195 K/uL (130-400); RDW Coefficient of Variation 14.2 % (11.5-14.5); RDW Standard Deviation 48.2 fL (36.4-46.3); Red Blood Count 4.48 M/uL (4.20-5.40); White Blood Count 6.31 K/ul (4.8-10.8)
[2024-04-19 07:17] LABS: Albumin Globulin Ratio 1.6 (0.9-2); Albumin Level 3.7 gm/dl (3.4-5.0); Bilirubin,Total 0.6 mg/dl (0.2-1.0); Calcium 9.5 mg/dl (8.6-10.3); Creatinine Clr Calc Pharmacy 71.7 ml/min; Est GFR (African American) 106.3 ml/min; Est GFR (Non-African American) 91.8 ml/min; Globulin 2.3 gm/dl (2.5-4.0); Magnesium 1.9 mg/dl (1.7-2.4); Phosphorus 3.2 mg/dl (2.5-4.9); Potassium 3.3 mmol/L (3.5-5.1)
--- NOTE | 2024-04-19 07:37 | Hospitalist Progress Note ---
Date of Service April 19, 2024 Assessment & Plan (1) Closed type II fracture of odontoid process: (2) NSVT (nonsustained ventricular tachycardia): Plan Closed Type II Fracture of Odontoid Process -Hx of mechanical fall at home and head injury on 03/25/24. -MRI Displaced type II odontoid fracture (new from the 03/24/2024 PET examination). -Pt placed in [place] J collar. Spinal Ortho consulted, appreciate recommendations -Analgesics PRN Nonsustained Ventricular Tachycardia (NSVT) while in ER an episode of NSVT noted on tele. Pt was asymptomatic. no chest pain , SoB, palpitations. 12 lead EKG sinus bradycardia in 60s. CXR cardiomegaly,prihylar infiltrates. Echo 03/02 : EF 55-60%, LVH, Gr 2 distolic dysfunction known hx of CHF, CAD pt last seen by cardio in 03/02. Plan: Tele f/u Mg, K levels. AM EKG. c/w home meds: verapamil ER 240mg po am, spironolactone 25mg po od, furosemide 20mg daily. AM labs. Admission and Anticipated Discharge Date Admission Date: April 18, 2024 Review of Systems Review of Systems: As per above Results & Data Results & Data Vital Signs (Past 12 Hours) Vital Signs Temp Pulse Pulse Pulse Resp BP Pulse Ox 04/19/24 07:07 36.4 C L 66 14 178/89 H 96 04/19/24 05:39 69 04/19/24 04:00 36.4 C L 60 18 173/78 H 95 04/18/24 22:59 74 04/18/24 22:15 04/18/24 22:15 36.5 C 69 18 156/74 H 94 04/18/24 20:00 60 O2 Del Method 04/19/24 07:07 Room Air 04/19/24 05:39 04/19/24 04:00 Room Air 04/18/24 22:59 04/18/24 22:15 Room Air 04/18/24 22:15 Room Air 04/18/24 20:00 Resident Activity Tracking Resident Involvement: Resident Care Provided Care Provided: Adult Hospital Medicine
[2024-04-19] MEDS: ENOXAPARIN INJ 40 MG/0.4 ML SYR SQ SCH (08:26)
[2024-04-19] MEDS: SILVER SULFADIAZINE 1% CR 50 GM JAR TOP SCH (08:27)
[2024-04-19] MEDS: FUROSEMIDE 20 MG TAB PO SCH (08:28)
[2024-04-19] MEDS: SPIRONOLACTONE 25 MG TAB PO SCH (08:28)
[2024-04-19] MEDS: VERAPAMIL HCL 240 MG TABCR PO SCH (08:29)
[2024-04-19] MEDS: OXYBUTYNIN CHLORIDE XL 5 MG TABCR PO SCH (08:29)
[2024-04-19] MEDS: allopurinoL 300 MG TAB PO SCH (08:30)
[2024-04-19] MEDS: POTASSIUM CHLORIDE 10 MEQ TABCR PO SCH (08:32)
[2024-04-19] MEDS ORDERED: LOSARTAN POTASSIUM 25 MG TAB PO SCH (09:00)
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
[2024-04-19 11:15] VITALS: BP 133/80; RESP 18; TEMP 97.9; O2SAT 95
--- NOTE | 2024-04-19 11:42 | Electrocardiogram Report ---
Test Reason : Blood Pressure : */* mmHG Vent. Rate : 51 BPM Atrial Rate : 51 BPM P-R Int : 140 ms QRS Dur : 80 ms QT Int : 480 ms P-R-T Axes : 67 48 61 degrees QTcB Int : 442 ms Sinus bradycardia with sinus arrhythmia Otherwise normal ECG When compared with ECG of 08-Feb-2024 11:19, (unconfirmed) Premature ventricular complexes are no longer Present Vent. rate has decreased by 38 bpm Borderline criteria for Inferior infarct are no longer Present Nonspecific T wave abnormality no longer evident in Inferior leads QT has shortened Confirmed by Deep Grant ([id number]) on 04/19/2024 11:42:20 AM Referred By: Confirmed By: Deep Grant
--- NOTE | 2024-04-19 11:58 | Electrocardiogram Report ---
Test Reason : Blood Pressure : */* mmHG Vent. Rate : 73 BPM Atrial Rate : 73 BPM P-R Int : 152 ms QRS Dur : 82 ms QT Int : 452 ms P-R-T Axes : 74 86 49 degrees QTcB Int : 497 ms Sinus rhythm with Premature supraventricular complexes Prolonged QT Abnormal ECG When compared with ECG of 18-Apr-2024 16:05, (unconfirmed) Premature supraventricular complexes are now Present QT has lengthened Confirmed by Deep Grant ([id number] on 04/19/2024 11:58:47 AM Referred By: REFERRED SELF Confirmed By: Deep Grant
[2024-04-19 15:46] VITALS: PULSE 69
--- NOTE | 2024-04-19 16:06 | Discharge Summary ---
"Date of Service April 19, 2024 Admission HPI Per Admitting Provider This is a 73 y/o lady with with PMHx of CHF, sleep apnea ( not on CPAP), COPD ( current smoker, not on home O2), DM2 (not on any meds), Hypothyroidism, stroke, Right lung nodule (under evaluation by pulmonology), memory issues ( due to see neurology in May 2024), recent mechanical fall at home and sustained minor head injury ( 03/25). History mainly obtained from the daughter (POA) Apparently they r eceived a call from MRI reporting team - that there was cervical fracture found on the scan. So she was asked to go to ER hence pt is here. Otherwise pt has no acute illness at the moment. Pt has been at her base line - managing to walk to toilet with help of walker, managing to eat solid food, no chocking, no cough, constipation, bowel or bladder incontinence.Denies any fever chills, headaches, speech or coordination issues. Denies any further falls. While in the ER pt had an episode of nonsustained VT on tele but pt was asymptomatic and denies any sx of Sob, Plaps, chest pain. Seen by cardio 03/02, EF 55-60%. Family says pt is compliant with her medications. 12 lead EKG today shows SR in 60s. Pt MRI report shows a Displaced type II odontoid fracture (new from the 03/24/2024 PET examination) and Pt is put on [place] J neck collar in ER today to stabilize the neck and ortho spine consulted who will evaluate the patient tomorrow. Admission Exam Per Admitting Provider Physical Exam: Alert AOx2 (oriented to place and person but not to time, cant tell her age and current year) Constitutional: not in any acute painful distress. Neck: neck is stabilized with maimi J collor. Respiratory: chest air entry equal, B/L, mild crepts B/L. Cardiovascular: Hs s1s2, regular, no murmur. Gastrointestinal (Abdomen): S, NT, BS +. Musculoskeletal: strength 5/5 all, 4 limbs. gait not checked. Skin: B/L LL chronic skin changes. Neurologic: cranial nerves intact grossly. cerebellar signs negative, sensation intact B/L equal. reflexes normal 2+, plantars down going. Principal Diagnosis odontoid fracture Discharge Exam Constitutional WD/WN, vitals as above Eyes + anicteric sclerae; no conjunctival abnormality ENMT Ears: no external ear abnormality Nose: no external nose abnormality moist mucous membranes Respiratory normal respiratory effort, lungs clear to auscultation Cardiovascular Rate/Rhythm: regular rate and regular rhythm +1 pitting edema of bilateral lower extremities Gastrointestinal (Abdomen) Abdomen soft, nontender and nondistended Musculoskeletal [place] J collar in place. Able to move arms and legs independently Skin no rashes, warm and dry Psychiatric A+Ox3, euthymic affect Discharge Data Allergies Allergy/AdvReac Type Severity Reaction Status Date / Time ciprofloxacin Allergy Intermediate Unknown Unverified 04/18/24 19:16 grass pollen-perennial rye, Allergy Intermediate nasal Verified 04/18/24 19:16 standar conjestion,watery eyes ibuprofen Allergy Intermediate hives, Verified 04/18/24 19:16 post nasal drip, TAKES ASA AT HOME indomethacin Allergy Intermediate hives, Verified 04/18/24 19:16 TAKES ASA AT HOME Milk Containing Products Allergy Intermediate Gastrointestinal Unverified 04/18/24 19:16 (Dairy) Upset naproxen Allergy Intermediate hives Verified 04/18/24 19:16 nitrofurantoin Allergy Intermediate itchy Verified 04/18/24 19:16 [From Macrobid] NSAIDS (Non-Steroidal Allergy Intermediate hives, Verified 04/18/24 19:16 Anti-Inflamma TAKES ASA AT HOME ragweed pollen Allergy Intermediate nasal Verified 04/18/24 19:16 conjestion, watery eyes ampicillin Allergy Mild N/V AND Verified 04/18/24 19:16 HIVES salicylates Allergy Mild DIARRHEA, Verified 04/18/24 19:16 RASH Bwiskvp-FCX-HkO Reductase AdvReac Intermediate MUSCLE Verified 04/18/24 19:16 Inhibitor ACHES [Odopwfi-Zpu-Avy Reductase Inhibitor] amphetamine [From Adderall] AdvReac Mild light Verified 04/18/24 19:16 headed dextroamphetamine AdvReac Mild light Verified 04/18/24 19:16 [From Adderall] headed Consultations 04/18/24 17:32 Consult Orthopedic Spine Surgery Routine ED Decision to Admit Stat Ordered Studies 04/18/24 14:35 CT cervical spine wo con Stat Cervical Spine CT 04/18/24 14:35 CT cervical spine wo con CLINICAL HISTORY: confirm c spine fx TECHNIQUE: Multidetector row helical CT of the cervical spine was performed without administration of intravenous contrast. Coronal and sagittal reformations were obtained. Automated dose lowering techniques and/or adjustment according to patient size were utilized for this exam. Comparison: Comparison is made to CTA neck 05/02/2017 FINDINGS: There is a acute to subacute fracture of the odontoid process at the level of the base of the odontoid. There is approximately 3 mm posterior displacement and mild angulation. Minimal comminution is seen. Degenerative changes are seen in the visualized spine. The alignment is normal. Soft tissues are unremarkable. IMPRESSION: Type II fracture of the odontoid which is mildly displaced and comminuted. ACT 112: Negative or not required by law. Electronically signed by: Janak Hinojosa M.D. 04/18/2024 4:04 PM Chest X-Ray 04/18/24 15:52 XR chest 1V portable CLINICAL HISTORY: Chest pain, nonspecific TECHNIQUE: Single frontal radiograph of the chest was obtained. Comparison: Comparison is made to chest radiograph 02/29/2024 FINDINGS: No lines and tubes are seen. Cardiomegaly is noted. The aortic arch is calcified. Peribronchial thickening is seen. No evidence of pleural effusion or pneumothorax. IMPRESSION: Peribronchial thickening is seen compatible with infectious/inflammatory airways disease or viral pneumonia. No tian consolidation is seen. ACT 112: Negative or not required by law. Electronically signed by: Janak Hinojosa M.D. 04/18/2024 4:36 PM Hospital Course (1) Closed type II fracture of odontoid process: (2) NSVT (nonsustained ventricular tachycardia): Plan Closed Type II Fracture of Odontoid Process -Hx of mechanical fall at home and head injury on 03/25/24. -MRI Displaced type II odontoid fracture (new from the 03/24/2024 PET examination). -Pt placed in [place] J collar. Spinal Ortho consulted, recommended wearing [place] J collar continuously for 2-3 weeks until outpatient follow up with ortho spine (can remove collar only for bathing). -Evaluated by PT/OT, able to be discharged to home with home health services which are being arranged by case management. Patient lives at home with granddaughter, daughter and son live locally as well. Intermittent Confusion | ?Mild Dementia -Recommend ongoing follow up with PCP -Could consider initiating Aricept or Namenda as outpatient -Will initiate daily B12 supplement due to borderline low B12 level Nonsustained Ventricular Tachycardia (NSVT) -One brief NSVT noted on tele in ED, patient was asymptomatic. EKG with few premature supraventricular beats, QT interval prolonged. -Consider repeat metabolic panel, magnesium level as outpatient to monitor electrolytes and repeat EKG to monitor QT interval. Total Time Total Time Spent Total Time Spent (In Minutes): <30 Discharge Plan Discharge Items Patient Disposition: Home - Self-Care Reason For Visit: CERVICAL DISPLACED FRACTURE AND NSVT Discharge Diagnosis: odontoid fracture Activity: Per Instructions section Non-emergency contact: Primary Care Provider Call non-emergency contact if: you have any medication questions and your symptoms worsen Follow-up/Referrals: Priti Scott CRNP [Primary Care Provider] - 04/22/24 10:30 am (Please schedule hospital discharge follow up appointment within 1 week ) Denis Mays DO [Surgeon] - (Please schedule follow up appointment in 2-[address] Mays) Diet: Heart Healthy Diet Texture: Easy to Chew Addtl Attending Provider Instructions: You were admitted to the hospital for odontoid fracture which was identified on MRI. You were fitted with a [place] J collar to stabilize your neck. After eval uation by Dr. Mays the orthopedic spine surgeon, it was determined that you are safe to continue wearing the [place] J collar and plan for follow up in 2-3 weeks in his office, no indication for surgical intervention at this time. It is very important that you wear this collar at all times except to bathe. You were also assessed by PT/OT and they felt it was safe for you to return home with home health services which case management is setting up. You should continue to follow up with your PCP to continue to investigate your ongoing memory difficulties. A discharge summary will be sent to your primary care physician to ensure continuity of care. Follow-up appointments: Make a follow-up appointment with your PCP within the next week. It is very important that you follow up with them shortly after discharge from the hospital. We have requested a follow-up appointment with Dr. Mays (ortho spine surgeon) within 2-3 weeks of discharge. Please call their office if you do not hear from them. Medications: Your medication list has been reviewed and reconciled upon discharge to ensure accuracy and continuity of care. An updated list of all your medications is included with your hospital discharge paperwork. Please review this list closely, and make note of any changes. We sent a new medication called Vitamin B12 to your pharmacy. Take Vitamin B12 (cyanocobalamin) 500mg (1 tablet) daily for 30 days. CALL 911 OR GO TO THE EMERGENCY DEPARTMENT if you experience any of the following: Sudden, severe abdominal pain or nausea/vomiting Severe chest pain, or chest pain that radiates (moves) to your jaw or arm Sudden, severe shortness of breath or difficulty breathing Thank you for allowing us to participate in your care. Pending Studies at Discharge: No Stand-Alone Forms: [facility], Smoking Cessation Medications and DC Order Prescriptions: New cyanocobalamin (vitamin B-12) 500 mcg tablet 500 mcg PO DAILY 30 Days Qty: 30 0RF Continued (DME) OneTouch Verio test strips Strip See Rx Instructions .Route Qty: 100 11RF Rx Instructions: TEST 1-2 TIMES PER DAY (DME) lancets [OneTouch Delica Lancets] 33 gauge misc See Rx Instructions .Route Qty: 100 11RF Rx Instructions: test 1-2 x a day (DME) blood-glucose meter [OneTouch Verio Meter] Misc See Rx Instructions .Route Qty: 1 0RF Rx Instructions: test 1-2 times aday albuterol sulfate [Ventolin HFA] 90 mcg/actuation HFA aerosol inhaler 2 puff inhalation Q6H PRN (Reason: shortness of breath or wheezing) Qty: 18 3RF allopurinol 300 mg tablet 300 mg PO DAILY Qty: 30 11RF Patient Comments: takes in the am Rx Instructions: take in am tolterodine 2 mg tablet 2 mg PO BID Qty: 60 11RF Rx Instructions: package and take am and supper lactase 4,500 unit tablet 4,500 unit PO ONCE PRN (Reason: When eating diary) Rx Instructions: administer with meals and/or snacks gabapentin 100 mg capsule 200 mg PO DAILY Qty: 180 3RF Hold Instructions: not takin for now Rx Instructions: at bedtime potassium chloride 10 mEq capsule, extended release 10 meq PO BID Rx Instructions: package take am and supper silver sulfadiazine [Silvadene] 1 % cream 1 applic topical DAILY Qty: 20 1RF Rx Instructions: apply a 1.5 mm thickness (DME) hospital bed See Rx Instructions .Route .MEDSUPPLY Qty: 1 0RF Rx Instructions: As directed, pls contact daughter Kayy for delivery furosemide 40 mg tablet 20 mg PO DAILY spironolactone 25 mg tablet 25 mg PO DAILY Rx Instructions: package and take in am levothyroxine 50 mcg tablet 50 mcg PO HS Patient Comments: takes in the am Rx Instructions: package, take at bedtime by itself verapamil 240 mg capsule,ext rel. pellets 24 hr 240 mg PO QAM Patient Comments: takes 1 tab bid Rx Instructions: take in am, packaged Anoro Ellipta 62.5-25 mcg/actuation blister with device 1 inh inhalation QPM losartan 25 mg tablet 0 mg PO DAILY Rx Instructions: Per caregiver/daughter this medication is currently on hold until PCP states start back. Original Directions: 25mg by mouth daily Discharge Orders: Discharge Order (Routine); Ordered 04/19/24 Ordered By: Guillermina Paz/Other Patient Handouts: Cervical Spine Tx, Know Your Neck: The Cervical Spine, How Bones Heal, ED Cervical Collar Admission Data Admit Date/Time: 04/18/24 19:33 Attending Provider: Luther Singh Admit Provider: Marisela Mac Primary Care Provider: Priti Scott Other Providers: Tho Zhou; Denis Mays; [facility] Fax Other Interventions: Discharge Summary Assessment (RN) Last Done: 04/19/24 15:44 Supervising Physician Co-Signing Physician Notes I personally examined the patient and verified all le points of history and exam, discussed case, and agree with decision making with Dr Nash feeling ok feels up to going home. extensive discussions on Cspine fx and then extensive discussions on possible dementia vitals noted nad heent nc at mmm breathing unlabored no accessory muscles good effort skin no rashes no pallor or icterus neuro no focal deficits Cspine fx - [place] Jcollar, appreciate ortho spine input - outpt f/u. did well w PT - safe/stable for home possible/probable early dementia - in discussion with pt and then son - subtle but seems pretty consistent with a degree of dementia. supplement B12 since somewhat low although doubt it's causing much as far as syndrome. will defer to PCP re aricept/namenda type medications. encouraged physical activity, social interaction. safe/stable for home close PCP and ortho f/u"
--- NOTE | 2024-04-19 17:07 | Billing Data ---
Date of Service April 19, 2024 Coding Level of Care Code 95457 IN/OBS DISCH 30 MIN/LESS
[2024-04-19] MEDS ORDERED: GABAPENTIN 100 MG CAP PO SCH (21:00)
[2024-04-19] MEDS ORDERED: UMECLIDINIUM/VILANTEROL 62.5/25MCG 7 PUFFS/INHALER INH SCH (21:00)
--- NOTE | 2024-04-20 17:57 | Billing Data ---
Date of Service April 18, 2024 Coding Level of Care Code 05868 INT INP/OBS CARE
[2024-04-21 10:20] LABS: iSTAT Creatinine 0.7 mg/dl (0.6-1.3); iSTAT Ionized Calcium 1.24 mmol/l (1.12-1.32); iSTAT Potassium 3.6 mmol/L (3.3-5.0)
== END 2024-04-19 16:10 | disposition home or self-care (01) ==
LOC: 2N 14:19 → ED 14:19 → SUATTDRO 19:33 → 2N 21:37
DX: R91.1 Solitary pulmonary nodule; S12.111A Posterior displaced Type II dens fracture, initial encounter for closed fracture; X58.XXXA Exposure to other specified factors, initial encounter; Z79.890 Hormone replacement therapy; S12.110A Anterior displaced Type II dens fracture, initial encounter for closed fracture; Y92.009 Unspecified place in unspecified non-institutional (private) residence as the place of occurrence of the external cause; F17.210 Nicotine dependence, cigarettes, uncomplicated; I47.20 Ventricular tachycardia, unspecified; W19.XXXA Unspecified fall, initial encounter; Z88.8 Allergy status to other drugs, medicaments and biological substances; Z79.899 Other long term (current) drug therapy; R41.0 Disorientation, unspecified

== ENCOUNTER 2024-11-18 11:09 | Observation (INO) ==
--- NOTE | 2024-11-09 09:47 | PAT Medication Instructions ---
Medication Instructions Date of Service November 09, 2024 Home Medications Medication Instructions Recorded blood-glucose meter (OneTouch #1 ea 04/03/22 Verio Meter) albuterol sulfate 90 mcg/actuation 2 puff inhalation Q6H PRN 01/11/24 aerosol inhaler (Ventolin HFA) shortness of breath or wheezing #18 grams allopurinol 300 mg tablet 300 mg PO DAILY #30 tabs 02/08/24 tolterodine 2 mg tablet 2 mg PO BID #60 ea 02/08/24 hospital bed #1 ea 02/25/24 blood sugar diagnostic (OneTouch #100 ea 05/05/24 Verio test strips) losartan 25 mg tablet 25 mg PO DAILY #90 tabs 05/16/24 lancets 33 gauge #100 ea 07/11/24 potassium chloride 10 mEq 10 meq PO BID #60 caps 08/05/24 capsule,extended release Bed pads-disposable #3 ea 08/19/24 Large briefs- disposable #3 ea 08/19/24 raised toilet seat #1 ea 08/19/24 wipes #5 ea 08/19/24 cyanocobalamin (vitamin B-12) 500 500 mcg PO DAILY 30 days #30 tabs 09/07/24 mcg tablet furosemide 20 mg tablet 20 mg PO DAILY #30 tabs 09/07/24 silver sulfadiazine 1 % topical 1 applic topical DAILY #20 grams 10/31/24 cream (Silvadene) lactase 4,500 unit tablet 4,500 unit PO ONCE PRN When eating diary albuterol sulfate 90 mcg/actuation aerosol inhaler (Ventolin HFA) 2 puff inha lation Q6H PRN shortness of breath or wheezing allopurinol 300 mg tablet 300 mg PO DAILY tolterodine 2 mg tablet 2 mg PO BID levothyroxine 50 mcg tablet 50 mcg PO HS spironolactone 25 mg tablet 25 mg PO DAILY umeclidinium 62.5 mcg-vilanterol 25 mcg/actuation powdr for inhalation (Anoro Ellipta) 1 inh inhalation QPM verapamil 240 mg 24 hr capsule,extended release 240 mg PO QAM losartan 25 mg tablet 25 mg PO DAILY potassium chloride 10 mEq capsule,extended release 10 meq PO BID cyanocobalamin (vitamin B-12) 500 mcg tablet 500 mcg PO DAILY furosemide 20 mg tablet 20 mg PO DAILY silver sulfadiazine 1 % topical cream (Silvadene) 1 applic topical DAILY STOP taking 24 hours before surgery silver sulfadiazine 1 % topical cream (Silvadene) 1 applic topical DAILY DO NOT take the morning of surgery lactase 4,500 unit tablet 4,500 unit PO ONCE PRN When eating diary tolterodine 2 mg tablet 2 mg PO BID losartan 25 mg tablet 25 mg PO DAILY potassium chloride 10 mEq capsule,extended release 10 meq PO BID cyanocobalamin (vitamin B-12) 500 mcg tablet 500 mcg PO DAILY furosemide 20 mg tablet 20 mg PO DAILY Take morning of surgery With a small sip of water, OTHERWISE NOTHING TO EAT OR DRINK AFTER MIDNIGHT: albuterol sulfate 90 mcg/actuation aerosol inhaler (Ventolin HFA) 2 puff inhalation Q6H PRN shortness of breath or wheezing (use if needed; please bring rescue inhaler with you to hospital day of surgery if possible) allopurinol 300 mg tablet 300 mg PO DAILY verapamil 240 mg 24 hr capsule,extended release 240 mg PO QAM Take evening before surgery lactase 4,500 unit tablet 4,500 unit PO ONCE PRN When eating diary (if needed) albuterol sulfate 90 mcg/actuation aerosol inhaler (Ventolin HFA) 2 puff inhalation Q6H PRN shortness of breath or wheezing (if needed) tolterodine 2 mg tablet 2 mg PO BID levothyroxine 50 mcg tablet 50 mcg PO HS umeclidinium 62.5 mcg-vilanterol 25 mcg/actuation powdr for inhalation (Anoro Ellipta) 1 inh inhalation QPM potassium chloride 10 mEq capsule,extended release 10 meq PO BID Other Notes If you have any questions please call us at [phone] or [phone] or [phone] or [phone]
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
[~2024-11-18 11:09] MED LIST changes: -ACET-1256 PO; -ALL300 PO; +ALLERGY Noted to ORDERED Medication SCH; -ASPI-232 PO; +BUPIVACAINE 0.5 % 5 MG/1 ML PF 10ML VIAL ONE; -CLC150 PO; -DIPH-384 PO; -DTRSR/2 PO; -FRS/40 PO; -MULT-506 PO; -NICO21DI35 TD; -NTRSLP4 SL; -PLV75 PO; -POTA1CAP2 PO; -PSEU30TA20 PO; -SILV1CRE73 TOP; -SPR25 PO; -VERA1TAB60 PO; -VNTHFA/IN INH; -ZTA10 PO
[2024-11-18] MEDS: dexAMETHasone**PF** 10 MG/ML VIAL IV SCH (11:51)
[2024-11-18] MEDS: LR 15ML/HR IV SCH (11:51)
[2024-11-18] MEDS: FAMOTIDINE 20 MG TAB PO SCH (12:05)
[2024-11-18] MEDS: GABAPENTIN 300 MG CAP PO SCH (12:05)
[2024-11-18] MEDS: ACETAMINOPHEN 500 MG TAB PO SCH (12:06)
[2024-11-18] MEDS ORDERED: Nursing to Pharmacy Communication SCH (12:15)
[2024-11-18] MEDS ORDERED: MIDAZOLAM HCL 1 MG/ML 2ML VIAL ONE (12:53)
[2024-11-18] MEDS ORDERED: fentaNYL citrate PF 100 MCG/2 ML VIAL ONE (12:54)
[2024-11-18] MEDS ORDERED: PROPOFOL IV EMULSION 10 MG/ML 20 ML VIAL IV ONE (12:55)
[2024-11-18] MEDS ORDERED: LIDOCAINE 2% 2 ML VIAL/AMP(20MG/ML) INFIL ONE ×2 (12:55→13:57)
[2024-11-18] MEDS ORDERED: ONDANSETRON INJ 2 MG/ML 2 ML VIAL ONE (12:56)
--- NOTE | 2024-11-18 13:10 | History & Physical Bridge Note ---
Date of Service November 18, 2024 History & Physical Bridge Note I have examined the patient, reviewed the History & Physical and in the interval since the performance of the History & Physical I have noted the following changes of clinical significance: no changes noted
[2024-11-18] MEDS: TRANEXAMIC ACID 1,000 MG **IV Pre-op IV SCH (14:02)
[2024-11-18] MEDS: ceFAZolin 2000MG 2,000 MG/15 ML SYR IV SCH (14:38)
[2024-11-18] MEDS: TRANEXAMIC ACID 1,000 MG **IV Intra-op IV SCH (15:21)
[2024-11-18] MEDS: ROPIV 0.5% 246mg, Ketorolac 30mg, EPINEPHrine 0.5mg in NSS INFIL SCH (15:24)
--- NOTE | 2024-11-18 15:25 | Operative Report ---
PG Post Operative Report Pre & Post Diagnosis Operation Date: 11/18/24 13:00 Pre-Op Diagnosis: Right shoulder arthritis, chronic dislocation. Post-Op Diagnosis: Right shoulder arthritis, chronic dislocation. I identified the patient and participated in the time-out.: Yes Procedure Operation Date: 11/18/24 13:00 Actual Procedures p Right Reverse Total Shoulder Arthroplasty(Right) - Mat Washington DO Surgeon Mat Washington DO Machine Plate Stacker Augusto Montejo PA-C Estimated Blood Loss 250 Findings Consistent with Post-Op Diagnosis Specimens Right humeral head Description of Procedure Implants used: I used a [employer]omet Comprehensive reverse total shoulder arthroplasty system with a size 8 press fit micro humeral stem, a +6 offset humeral tray and a +3 retentive humeral bearing, a 25 mm small augment baseplate with a 6.5 mm central screw and superior and inferior locking screws, and a size 36 mm eccentric glenosphere. Tasneem arrived at [facility] for the above procedure. She was seen in the preoperative holding area and the operative extremity was identified and signed. She was given a preoperative antibiotic, TXA, and an interscalene nerve block. She was taken back to the operating room, laid on table in supine position, and put under general anesthesia. She was then put into the beachc hair position. The shoulder was then prepped and draped in sterile fashion. A timeout was done and the patient and the operative extremity was properly identified. A deltopectoral approach was used. Dissection was taken down through the fascia and the deltoid was retracted laterally and the conjoined tendon was retracted medially. The anterior shoulder was exposed. The biceps tendon was torn. The subscapularis was also mostly torn. The inferior aspect of the subscapularis was still intact and that was released. The inferior capsule was released and the humeral head was dislocated. A canal finding reamer was sent down the center of the humeral canal. Sequential reaming up to a size 8 reamer was done. Off that reamer, a proximal humeral resection guide was placed. The proximal humerus was resected at 135 of inclination and 25 of retroversion. Osteophytes were then removed and the glenoid was exposed. Time was spent doing a complete capsular and labral release. The glenoid guide was then placed in the inferior aspect of the glenoid. A 3.2 mm Steinmann pin was then placed into the glenoid vault at 10 of inclination. The glenoid baseplate was then reamed. The final size 25 mm small augment baseplate was then impacted in the place. A 6.5 mm central screw was then placed followed by superior and inferior locking screws. A 36 mm eccentric glenosphere was then impacted into place. Surrounding soft tissues were then injected with 100 cc an orthopedic pain control cocktail. The proximal humerus was then exposed. Sequential broaching of the humerus up to a size 8 broach was done. Off that broach a +6 offset and +3 retentive humeral tray was trialed. The shoulder was then reduced, brought through a full range of motion, and felt to be stable. The shoulder was then dislocated and the broach was removed. The final size 8 micro press-fit humeral stem was then impacted into place. A +3 retentive humeral bearing was then snapped onto a +6 offset humeral tray. The humeral tray was then impacted onto the humeral stem. The shoulder was once again reduced, brought through a full range of motion, and felt to be stable. The subscapularis was chronically torn and unable to be repaired. A dilute betadyne lavage was then done for 3 minutes. The joint was then irrigated with normal saline solution. Hemostasis was obtained. The interval was closed with 2-0 Vicryl suture. The skin was then closed with 2-0 Vicryl and trino. A Silverlon dressing was placed and the arm was rested in a regular arm sling. She was then extubated and transferred to a hospital bed. She taken to the postanesthesia care unit in stable condition. She tolerated the procedure well. Augusto Montejo PA-C, was present for the entire procedure. He was critical for pat ient positioning, prepping, draping, retraction exposure, wound closure and application of sterile dressing. I attest to the content of the Intraoperative Record and any orders documented therein. Any exceptions are noted below.
--- NOTE | 2024-11-18 16:25 | Anesthesiology Progress Note ---
Date of Service November 18, 2024 Anesthesia Post Procedure Vital Signs Vital Signs: Temp Pulse Pulse Resp BP Pulse Ox O2 Del Method 11/18/24 16:20 64 17 101/47 L 96 Oxymask 11/18/24 16:10 65 18 104/64 96 Oxymask 11/18/24 16:00 71 14 109/50 L 96 Oxymask 11/18/24 15:50 78 16 108/46 L 94 Oxymask 11/18/24 15:46 36.0 C L 76 16 117/50 L 96 Oxymask 11/18/24 11:36 Room Air 11/18/24 11:36 36.5 C 62 20 154/69 H 99 Room Air O2 Flow Rate 11/18/24 16:20 2 11/18/24 16:10 2 11/18/24 16:00 2 11/18/24 15:50 4 11/18/24 15:46 4 11/18/24 11:36 11/18/24 11:36 Pain Intensity Right Shoulder: Pain Intensity: 7 Transfer of Care Handoff Completed per policy Notes Mental Status: alert / awake / arousable Patient Amnestic to Procedure: Yes Nausea / Vomiting: adequately controlled Pain: adequately controlled Airway Patency, RR, SpO2: stable & adequate BP & HR: stable & adequate Hydration State: stable & adequate Anesthetic Complications: no major complications apparent and Pt Satisfied with anesthetic care
--- NOTE | 2024-11-18 16:57 | XRay Report ---
Clinical History: Postoperative examination 2 views of the right shoulder are submitted for review. Comparison is made to the prior examination dated 10/26/2024 Findings: There is a new right shoulder total arthroplasty in expected position. There is no definite sign of infection or loosening. The acromioclavicular joint appears unremarkable. No other osseous abnormality is identified. There are surgical skin trino Impression: New right shoulder replacement Electronically signed by Cole Gooden 11-18-2024 4:56 PM
[2024-11-18] MEDS ORDERED: NALOXONE HCL 0.4 MG/1 ML VIAL/CARP IV PRN (17:50)
[2024-11-18] MEDS ORDERED: bisacodyL 10 MG SUPP PR PRN (17:50)
[2024-11-18] MEDS ORDERED: MAGNESIUM HYDROXIDE SUSP 30 ML UDC PO PRN (17:50)
[2024-11-18] MEDS ORDERED: ONDANSETRON INJ 2 MG/ML 2 ML VIAL IV PRN (17:50)
[2024-11-18] MEDS ORDERED: oxyCODONE HCL IR 5 MG TAB (IMMEDIATE RELEASE) PO PRN (17:50)
[2024-11-18] MEDS ORDERED: METOCLOPRAMIDE HCL INJ 5 MG/ML 2 ML VIAL IV PRN (17:50)
[2024-11-18] MEDS ORDERED: PHARMACY GLYCEMIC MGMT CONSULT PRN (17:50)
[2024-11-18] MEDS ORDERED: HYDROmorphone INJ 0.5 MG/0.5 ML SYR IV PRN (17:50)
[2024-11-18] MEDS: BUPIVACAINE LIPOSOME 1.3% 133 MG/10 ML VIAL ONE (19:20)
[2024-11-18] MEDS: ceFAZolin 2,000 MG/15 ML IV PUSH IV ONE (19:21)
[2024-11-18] MEDS: KETOROLAC TROMETHAMINE 15 MG/ML VIAL IV SCH (19:22)
[2024-11-18] MEDS: LEVOTHYROXINE SODIUM 50 MCG TABLET PO SCH (20:43)
[2024-11-18] MEDS: UMECLIDINIUM/VILANTEROL 62.5/25MCG 7 PUFFS/INHALER INH SCH (20:44)
[2024-11-18] MEDS ORDERED: DOCUSATE SODIUM 100 MG CAP PO SCH (21:00)
[2024-11-18] MEDS ORDERED: SENNA 8.6 MG TAB PO SCH (21:00)
[2024-11-18] MEDS: MELATONIN 3 MG TAB PO PRN (21:11)
[2024-11-18] MEDS ORDERED: ACETAMINOPHEN 500 MG TAB PO SCH (22:00)
[2024-11-18] MEDS ORDERED: ceFAZolin 1000MG 1,000 MG/7.5 ML SYR IV SCH (22:00)
[2024-11-19] MEDS: oxyCODONE HCL IR 5 MG TAB (IMMEDIATE RELEASE) PO PRN (05:37)
--- NOTE | 2024-11-19 07:20 | Orthopedic Progress Note ---
Date of Service November 19, 2024 Assessment & Plan (1) Status post reverse total replacement of right shoulder: Overall she is doing fairly well. She is not having much pain in the right shoulder. She will be seen by physical therapy today for ambulation and range of motion exercises. Case management also see her today. I do want a make sure she is safe to return home. If she is able to return home today she can be discharged to home later today and follow-up with orthopedics in 2 weeks. Elaina Boateng was seen and examined at bedside this morning. Overall she is doing fairly well. She is not having any pain in the right shoulder. The nerve block is still in effect. She has no complaints.. Review of Systems All systems reviewed & are unremarkable except as noted in HPI & below. Physical Exam On physical exam of the right shoulder, the dressing is clean and dry. She is wearing her sling as instructed. The nerve block is still in effect.. Results & Data Results & Data Laboratory Results . Diagnostic Findings Postoperative x-rays of the right shoulder show the prosthesis to be in anatomic alignment without any evidence of fracture complication, or loosening.. PG Care Time/CCT Total # of Minutes Spent Total Time Spent with Patient: Total time spent is greater than 50% in coordination of care (as documented) at patient's floor/unit and/or counseling patient: Coding Level of Care Code 63790 Post Operative Follow-Up Diagnoses Status post reverse total replacement of right shoulder Z96.611
--- NOTE | 2024-11-19 07:21 | Discharge Summary ---
Date of Service November 19, 2024 Principal Diagnosis Same as "Discharge Diagnosis" noted below under Discharge Instructions. Discharge Exam On physical exam of the right shoulder, the dressing is clean and dry. She is wearing her sling as instructed. The nerve block is still in effect.. Discharge Data Procedures Performed Operation Date: 11/18/24 13:00 Actual Procedures p Right Reverse Total Shoulder Arthroplasty(Right) - Mat Washington DO Ordered Studies 11/18/24 05:00 US - OR guided needle placemen Routine Hospital Course (1) Status post reverse total replacement of right shoulder: On November 18, 2024 Tasneem arrived at [facility] and underwent a right reverse shoulder replacement without complication. She had a general anesthetic and a right interscalene nerve block. Postoperatively, she was placed in a sling and transferred to the general orthopedic floors. Her hospital course was uneventful. On postop day #1, her vital signs were stable and her pain was well-controlled. She was able to dissipate well with physical therapy doing ambulation and range of motion exercises. She was then discharged to home. She will follow-up with orthopedics in 2 weeks. PG Care Time/CCT Total # of Minutes Spent Total Time Spent with Patient: Total time spent is greater than 50% in coordination of care (as documented) at patient's floor/unit and/or counseling patient: Discharge Plan Discharge Items Patient Disposition: Home - Self-Care Reason For Visit: Right Shoulder Arthritis, Chronic Dislocation Discharge Diagnosis: Right reverse shoulder replacement Activity: Per Instructions section Non-emergency contact: Surgeon Call non-emergency contact if: your wound has increased redness and your wound has increased drainage Follow-up/Referrals: Priti Scott CRNP [Primary Care Provider] - Diet: Regular Addtl Attending Provider Instructions: Activity and Therapy Recommendations: * If you are using [facility] then therapy will be provided at your home until they feel you have accomplished all of your goals. * If you are using [facility] then Physical Therapy will be provided until they feel you are ready to start Outpatient Physical Therapy. * If you are not using home therapy then Outpatient Physical Therapy should start about 3-5 days from your day of surgery. Therapy will last about 8-12 weeks * Wear your sling for 3 weeks, unless otherwise instructed. You may remove your sling to shower and to dress, but otherwise, you should be in your sling at all times, including while sleeping * The shoulder replacement is very stable and you can use your hand while in the sling * You were shown a series of exercises in the hospital. Do these exercises daily including the exercises you were shown in physical therapy. Medications: * Narcotic You will likely be sent home from the hospital with a prescription for the narcotic pain medication that worked best throughout your stay. * Cefadroxil -take the antibiotic twice a day for 10 days to help prevent infection. * Other medications may be prescribed for specific circumstances. If you have any questions, please call the office at . * Resume previous home medications unless otherwise instructed Dressing Care: Leave the Silverlon dressing in place for 7 days. After 7 days you may remove the dressing. If the incision is not draining then you may leave the trino open to air. If there is a little bit of drainage or if the trino are getting stuck on your clothing then cover the incision with a dry dressing. The trino will be removed at your 2 week follow-up appointment. Showering: You may shower with the Silverlon dressing in place. Do not let the shower spray hit the dressing directly. Pat the Silverlon dressing dry. If the dressing becomes wet underneath, then simply remove the dressing. Keep the incision dry until you are 7 days out from the day of surgery. After 7 days you may remove the Silverlon dressing and shower with the trino exposed. Let soapy water run over the trino and pat them dry. Do not scrub or soak the incision. Diet: You may resume your previous diet. Things To Watch For: * Drainage from the incision site that occurs more than one week after your surgery. * Increased redness at the incision site. * Fever above 102 degrees Fahrenheit. * Unusual chest pain or shortness of breath. * Call [facility] at with any of the above problems Follow-Up Visit: Follow-up with Dr. Washington's office 2-3 weeks after your day of surgery. We will remove your trino and answer any questions. If you have any additional questions or concerns, Dr Washington is usually in the office at the same time and will be available An appointment was probably scheduled when you signed-up for surgery in the office. If you have any questions call More detailed instructions as well as Frequently Asked Questions were provided in a folder by our office when you signed-up for surgery. Please review these instructions when you get home. If you have any further questions or concerns, please feel free to call the office at [phone] Pending Studies at Discharge: No Stand-Alone Forms: [facility] Medications and DC Order Prescriptions: New cefadroxil 500 mg capsule 500 mg PO BID 10 Days Qty: 20 0RF oxycodone 5 mg tablet 5 mg PO Q6H PRN (Reason: pain) Qty: 30 0RF Continued (DME) blood-glucose meter [OneTouch Verio Meter] Misc See Rx Instructions .Route Qty: 1 0RF Rx Instructions: test 1-2 times aday albuterol sulfate [Ventolin HFA] 90 mcg/actuation HFA aerosol inhaler 2 puff inhalation Q6H PRN (Reason: shortness of breath or wheezing) Qty: 18 3RF allopurinol 300 mg tablet 300 mg PO DAILY Qty: 30 11RF Patient Comments: takes in the am Rx Instructions: take in am tolterodine 2 mg tablet 2 mg PO BID Qty: 60 11RF Rx Instructions: package and take am and supper (DME) OneTouch Verio test strips Strip See Rx Instructions .Route Qty: 100 11RF Rx Instructions: TEST 1-2 TIMES PER DAY (DME) lancets 33 gauge misc See Rx Instructions .Route Qty: 100 11RF Rx Instructions: test 1-2 x a day potassium chloride 10 mEq capsule, extended release 10 meq PO BID Qty: 60 5RF Rx Instructions: package take am and supper (DME) Bed pads-disposable See Rx Instructions .Route .MEDSUPPLY Qty: 3 5RF Rx Instructions: dispense 3 packs (DME) Large briefs- disposable See Rx Instructions .Route .MEDSUPPLY Qty: 3 5RF Rx Instructions: As directed, dispense 3 packs (DME) wipes See Rx Instructions .Route .MEDSUPPLY Qty: 5 5RF Rx Instructions: As directed (DME) raised toilet seat See Rx Instructions .Route .MEDSUPPLY Qty: 1 0RF Rx Instructions: As directed furosemide 20 mg tablet 20 mg PO DAILY Qty: 30 5RF Rx Instructions: please add to bubble pack cyanocobalamin (vitamin B-12) 500 mcg tablet 500 mcg PO DAILY 30 Days Qty: 30 4RF silver sulfadiazine [Silvadene] 1 % cream 1 applic topical DAILY Qty: 20 1RF Rx Instructions: apply a 1.5 mm thickness lactase 4,500 unit tablet 4,500 unit PO ONCE PRN (Reason: When eating diary) Rx Instructions: administer with meals and/or snacks losartan 25 mg tablet 25 mg PO DAILY Qty: 90 3RF (DME) hospital bed See Rx Instructions .Route .MEDSUPPLY Qty: 1 0RF Rx Instructions: As directed, pls contact daughter Kayy for delivery furosemide 20 mg tablet 20 mg PO DAILY Qty: 30 3RF Rx Instructions: Take for next 3 days in addition to usual Lasix. Medication will then be used as needed postoperatively. potassium chloride 10 mEq capsule, extended release 10 meq PO DAILY Qty: 30 2RF Rx Instructions: Take for next 3 days in addition to usual dose. Then, when furosemide is used as needed also take 1 tab. spironolactone 25 mg tablet 25 mg PO DAILY Rx Instructions: package and take in am levothyroxine 50 mcg tablet 50 mcg PO HS Patient Comments: takes in the am Rx Instructions: package, take at bedtime by itself verapamil 240 mg capsule,ext rel. pellets 24 hr 240 mg PO QAM Patient Comments: takes 1 tab bid Rx Instructions: take in am, packaged Anoro Ellipta 62.5-25 mcg/actuation blister with device 1 inh inhalation QPM Discharge Orders: Discharge Order (Routine); Ordered 11/19/24 Ordered By: Mat Washington Admission Data Admit Date/Time: 11/18/24 15:48 Attending Provider: Mat Washington Admit Provider: Mat Washington Primary Care Provider: Priti Scott
[2024-11-19] MEDS ORDERED: MULTIVITAMIN TAB PO SCH (09:00)
[2024-11-19] MEDS ORDERED: FUROSEMIDE 20 MG TAB PO SCH (09:00)
[2024-11-19] MEDS ORDERED: Nursing to Pharmacy Communication SCH ×2 (09:30→10:15)
[2024-11-19] MEDS ORDERED: MAGNESIUM HYDROXIDE SUSP 30 ML UDC PO PRN (10:10)
[2024-11-19] MEDS ORDERED: HYDROmorphone INJ 0.5 MG/0.5 ML SYR IV PRN (10:10)
[2024-11-19] MEDS ORDERED: ONDANSETRON INJ 2 MG/ML 2 ML VIAL IV PRN (10:10)
[2024-11-19] MEDS: OXYBUTYNIN CHLORIDE XL 5 MG TABCR PO SCH (10:35)
[2024-11-19] MEDS: FUROSEMIDE 20 MG TAB PO SCH (10:35)
[2024-11-19] MEDS: allopurinoL 300 MG TAB PO SCH (10:35)
[2024-11-19] MEDS: LOSARTAN POTASSIUM 25 MG TAB PO SCH (10:36)
[2024-11-19] MEDS: VERAPAMIL HCL 240 MG TABCR PO SCH (10:36)
[2024-11-19] MEDS: SPIRONOLACTONE 25 MG TAB PO SCH (10:37)
[2024-11-19] MEDS: ceFAZolin 1000MG 1,000 MG/7.5 ML SYR IV SCH (10:45)
[2024-11-19] MEDS: KETOROLAC TROMETHAMINE 15 MG/ML VIAL IV SCH (10:51)
[2024-11-19] MEDS: ACETAMINOPHEN 500 MG TAB PO SCH (13:32)
[2024-11-19] MEDS: DOCUSATE SODIUM 100 MG CAP PO SCH (20:24)
[2024-11-19] MEDS: SENNA 8.6 MG TAB PO SCH (20:24)
[2024-11-20] MEDS: MULTIVITAMIN TAB PO SCH (08:28)
[2024-11-20 22:58] VITALS: RESP 16
--- NOTE | 2024-11-21 06:47 | Orthopedic Progress Note ---
Date of Service November 21, 2024 Assessment & Plan (1) Status post reverse total replacement of right shoulder: POD # from a right reverse total shoulder arthroplasty by Dr. Washington. -Most recent CM note on 11/20/24: "Weekend CM- Received message from PT that patient needs a fanta walker to discharge home. Met with patient at bedside to provide list of [employer] companies and she chose [facility]. Reviewed CM notes and it looks like the plan was to go to [facility] for rehab if insurance approves. Patient said that she doesn't want to go to [facility] and prefers to go home. She lives with her granddaughter, who works overnight cashier. Explained that if she goes to [facility], CM can not yet get her a walker yet. She said, "My daughter is the one that wants me to go.". Reviewed therapy notes from yesterday and they recommended rehab. No notes in from today yet. Patient said, "I will sleep on it and let you know what I decide tomorrow". CM to follow up in the morning. If patient goes home, will need to send referral for fanta-walker to [facility]." - She is orthopedically stable, will just need CM and PT involvement for a safe discharge home. - Follow-up with Dr. Washington's tea, in 2-3 weeks outpatient. Subjective Operation Date: 11/18/24 13:00 Actual Procedures p Right Reverse Total Shoulder Arthroplasty(Right) - Mat Washington, DO POD 3 from a right reverse total shoulder arthroplasty by Dr. Washington. She is doing OK. She is waiting to see if she can do HH vs a rehab center. She does not want to go to a rehab center but PT recommends it. Case management was involved over the weekend and will follow-up with her today. Review of Systems All systems reviewed & are unremarkable except as noted in HPI & below. Physical Exam Gen: alert and oriented. No acute distress. right shoulder: dressing dry and intact. She has a shoulder immobilizer devise in place. NV intact RUE. Results & Data Results & Data Laboratory Results . Diagnostic Findings . PG Care Time/CCT Total # of Minutes Spent Total Time Spent with Patient: Total time spent is greater than 50% in coordination of care (as documented) at patient's floor/unit and/or counseling patient: Coding Level of Care Code 77656 Post Operative Follow-Up Diagnoses Status post reverse total replacement of right shoulder Z96.611
[2024-11-21 07:39] VITALS: BP 125/67; TEMP 97.9; O2SAT 94
[2024-11-21 15:21] VITALS: PULSE 81
== END 2024-11-21 16:20 | disposition home or self-care (01) ==
LOC: 3N 11:09 → ASU 11:09